=== PATIENT | male | born 1950 | race Caucasian/White ===

== ENCOUNTER 2020-02-21 10:03 | Inpatient (IN) | payer OTHER ==
[2020-02-21] MEDS ORDERED: HYDROCODONE/CHLORPHEN 5 ML/OSYR ONE (10:19)
[2020-02-21] MEDS ORDERED: ENOXAPARIN 100 MG/ML SYR SQ ONE (10:19)
[2020-02-21] MEDS ORDERED: METOPROLOL TARTRATE 5 MG/5 ML INJ IV ONE (10:19)
[2020-02-21 10:33] LABS: Absolute Lymphocytes (CBC) 0.7 K/uL (0.7-4.9); Basophils % 0.5 % (0-1.3); Lymphocytes % 13.2 % (15.3-44.8); MPV 8.8 fL (7.6-11.3); RBC Red Blood Cell Count 5.26 M/uL (4.33-5.43)
[2020-02-21 11:00] LABS: ALT/SGPT 35 U/L (12-78); AST/SGOT 23 U/L (15-37); Albumin 3.8 g/dL (3.4-5.0); Alkaline Phosphatase 118 U/L (45-117); BUN Blood Urea Nitrogen 15 mg/dL (7-18); Bicarbonate 28 mmol/L (21-32); Bilirubin Direct 0.2 mg/dL (0-0.2); Bilirubin Total 0.7 mg/dL (0.2-1.0); Creatine Phosphokinase 77 U/L (39-308); Glucose Level 97 mg/dL (74-106); Lipase 175 U/L (73-393); Potassium 3.9 mmol/L (3.5-5.1); Protein, Total 7.5 g/dL (6.4-8.2); Sodium Level 137 mmol/L (136-145); Troponin (Emerg Dept Use Only) < 0.02 ng/mL (0.0-0.045)
[2020-02-21 11:05] LABS: Protime INR 0.98
--- NOTE | 2020-02-21 11:31 | EDPHYS ---
Physician Documentation [facility] Name: Mehul Franco Age: 69 yrs Sex: Male : 1950 Arrival Date: 02/21/2020 Time: 10:04 Bed 6 Private MD: ED Physician Javy Archer HPI: 02/20 10:54 This 69 yrs old Male presents to ER via Unassigned with complaints of Breathing jr8 Difficulty - COVID pos. 10:54 The patient has shortness of breath at rest. Onset: The symptoms/episode began/occurred jr8 gradually, 5 day(s) ago, and became worse. Duration: The symptoms are continuous. The patient's shortness of breath is aggravated by light activity, walking. Associated signs and symptoms: Pertinent positives: non-productive cough, fever, Lost of taste . Severity of symptoms: At their worst the symptoms were moderate in the emergency department the symptoms are unchanged. The patient has not experienced similar symptoms in the past. The patient has not recently seen a physician. Patient tested positive for COVID-19 via [facility]. Got results yesterday from PCR nasal swab. Stated that he had mild symptoms that started this past Wednesday but now getting short of breath and having worsening of cough. Historical: - Allergies: 10:58 No Known Allergies; sv - Home Meds: 10:58 losartan oral oral [Active]; levothyroxine oral [Active]; sv - PMHx: 10:58 High Cholesterol; Thyroid problem; sv - PSHx: 10:58 Hernia repair; sv - Immunization history:: Adult Immunizations up to date. - Social history:: Smoking status: Patient denies any tobacco usage or history of. ROS: 10:54 Eyes: Negative for injury, pain, redness, and discharge, ENT: Negative for injury, jr8 pain, and discharge, Neck: Negative for injury, pain, and swelling, Cardiovascular: Negative for chest pain, palpitations, and edema, Abdomen/GI: Negative for abdominal pain, nausea, vomiting, diarrhea, and constipation, Back: Negative for injury and pain, MS/Extremity: Negative for injury and deformity, Skin: Negative for injury, rash, and discoloration, Neuro: Negative for headache, weakness, numbness, tingling, and seizure. 10:54 Constitutional: Positive for fever. 10:54 Respiratory: Positive for cough, dyspnea on exertion, shortness of breath. Exam: 10:54 Eyes: Pupils equal round and reactive to light, extra-ocular motions intact. Lids and jr8 lashes normal. Conjunctiva and sclera are non-icteric and not injected. Cornea within normal limits. Periorbital areas with no swelling, redness, or edema. ENT: Nares patent. No nasal discharge, no septal abnormalities noted. Tympanic membranes are normal and external auditory canals are clear. Oropharynx with no redness, swelling, or masses, exudates, or evidence of obstruction, uvula midline. Mucous membranes moist. Neck: Trachea midline, no thyromegaly or masses palpated, and no cervical lymphadenopathy. Supple, full range of motion without nuchal rigidity, or vertebral point tenderness. No Meningismus. Abdomen/GI: Soft, non-tender, with normal bowel sounds. No distension or tympany. No guarding or rebound. No evidence of tenderness throughout. Back: No spinal tenderness. No costovertebral tenderness. Full range of motion. Skin: Warm, dry with normal turgor. Normal color with no rashes, no lesions, and no evidence of cellulitis. MS/ Extremity: Pulses equal, no cyanosis. Neurovascular intact. Full, normal range of motion. Neuro: Awake and alert, GCS 15, oriented to person, place, time, and situation. Cranial nerves II-XII grossly intact. Motor strength 5/5 in all extremities. Sensory grossly intact. Cerebellar exam normal. Normal gait. 10:54 Cardiovascular: Rate: tachycardic, Rhythm: irregularly irregular, Pulses: Pulses are 2+ in right radial artery and left radial artery. Heart sounds: normal, normal S1and S2, no S3 or S4, no murmur, no rub, no gallop, Edema: is not appreciated, JVD: is not appreciated. 10:54 ECG was reviewed by the Attending Physician. 10:54 Respiratory: mild respiratory distress is noted, Respirations: tachypnea, Breath sounds: are clear throughout, no bronchial sounds, no decreased breath sounds, no rales, rhonchi, no stridor, no wheezing. Vital Signs: 09:48 BP 144 / 101; Pulse 138; Resp 20; Pulse Ox 98% ; sv 10:08 BP 144 / 101; Pulse 142; Resp 24; Temp 99.4; Pulse Ox 98% on R/A; Weight 108.41 kg; ph 10:39 BP 142 / 90; Pulse 115 MON; Resp 22; Pulse Ox 98% on R/A; sv 10:45 BP 116 / 81; Pulse 118 MON; Resp 17; Pulse Ox 95% on R/A; sv 11:58 BP 130 / 101; Pulse 111 MON; Resp 22; Pulse Ox 98% on R/A; sv 12:18 BP 133 / 99; Pulse 99; Resp 20; Pulse Ox 100% on R/A; mh5 12:45 BP 133 / 99; Pulse 103 MON; Resp 21; Pulse Ox 96% on R/A; sv 13:24 BP 122 / 99; Pulse 102; Resp 20; Pulse Ox 97% on R/A; sv 09:48 A fib sv 10:39 A fib sv 10:45 A fib sv 11:58 A fib sv 12:45 A fib sv MDM: 10:05 Patient medically screened. [facility] 11:29 Data reviewed: vital signs, nurses notes, lab test result(s), EKG, radiologic studies, [facility] plain films. Data interpreted: Pulse oximetry: on room air is 95 %. Interpretation: acceptable. Counseling: I had a detailed discussion with the patient and/or guardian regarding: the historical points, exam findings, and any diagnostic results supporting the discharge/admit diagnosis, lab results, radiology results, the need for further work-up and treatment in the hospital. 02/20 10:06 Order name: Ckmb; Complete Time: 11:02/20 10:06 Order name: Fibrinogen; Complete Time: 11:02/20 10:06 Order name: D-Dimer; Complete Time: 11:02/20 10:06 Order name: C-Reactive Protein; Complete Time: 11:02/20 10:06 Order name: Basic Metabolic Panel; Complete Time: 11:02/20 10:06 Order name: Blood Culture Adult (2) 02/20 10:06 Order name: CBC with Diff; Complete Time: 10:53 02/20 10:06 Order name: CPK; Complete Time: 11:02/20 10:06 Order name: Lactate; Complete Time: 11:02/20 10:06 Order name: LFT's; Complete Time: 11:13 [facility] 02/20 10:06 Order name: Lipase; Complete Time: 11:13 [facility] 02/20 10:06 Order name: Procalcitonin; Complete Time: 11:24 [facility] 02/20 10:06 Order name: Protime (+inr); Complete Time: 11:13 [facility] 02/20 10:06 Order name: Ptt, Activated; Complete Time: 11:13 [facility] 02/20 10:06 Order name: Troponin (emerg Dept Use Only); Complete Time: 11:13 [facility] 02/20 10:06 Order name: Urine Microscopic Only [facility] 02/20 10:06 Order name: Chest Single View XRAY; Complete Time: 11:51 [facility] 02/20 10:07 Order name: Ferritin; Complete Time: 11:13 [facility] 02/20 12:58 Order name: Comprehensive Metabolic Panel EDWA 02/20 12:58 Order name: Comprehensive Metabolic Panel [facility] 02/20 13:00 Order name: CBC with Automated Diff EDWA 02/20 13:00 Order name: CBC with Automated Diff EDMS 02/20 13:01 Order name: Troponin I EDWA 02/20 13:01 Order name: Troponin I [facility]WA 02/20 13:01 Order name: Sputum Gram Stain EDWA 02/20 13:02 Order name: Echo with Doppler [facility]WA 02/20 13:02 Order name: Thyroid Stimulating Hormone; Complete Time: 13:34 [facility] 02/20 13:14 Order name: Urine Dipstick--Ancillary (enter results); Complete Time: 13:20 02/20 10:06 Order name: Cardiac monitoring; Complete Time: 10:55 [facility] 02/20 10:06 Order name: EKG - Nurse/Tech; Complete Time: 10:56 [facility] 02/20 10:06 Order name: IV Saline Lock - Large Bore; Complete Time: 10:56 [facility] 02/20 10:06 Order name: Labs collected and sent; Complete Time: 10:56 [facility] 02/20 10:06 Order name: O2 Per Protocol; Complete Time: 10:56 [facility] 02/20 10:06 Order name: O2 Sat Monitoring; Complete Time: 10:56 [facility] 02/20 10:06 Order name: Urine Dipstick-Ancillary (obtain specimen); Complete Time: 13:24 [facility] 02/20 12:58 Order name: CONS Pharmacy Consult EDWA 02/20 12:58 Order name: CONS Physician Consult EDWA 02/20 13:00 Order name: Heart Healthy EDWA 02/20 13:02 Order name: CONS Physician Consult EDWA EC:54 Rate is 137 beats/min. Rhythm is irregularly irregular, A fib. QRS [place] is Normal. QRS jr8 interval is normal at 88 msec. QT interval is normal. No Q waves. T waves are Inverted in leads II, V4, V5, V6. No ST changes noted. Clinical impression: Atrial Fibrillation. Interpreted by me. Reviewed by me. Administered Medications: 10:07 Not Given (Physician Discretion): NS 0.9% (30 ml/kg) 30 ml/kg IV at bolus once; Sepsis jr8 Protocol 10:29 Drug: Lovenox 1 mg/kg Route: Sub-Q; Site: right lower abdomen; sv 11:23 Follow up: Response: No adverse reaction sv 10:29 Drug: Tussionex Pennkinetic ER 5 ml Route: PO; sv 11:23 Follow up: Response: No adverse reaction sv 10:29 Drug: Metoprolol 5 mg Route: IVP; Site: left antecubital; sv 10:41 Drug: Metoprolol 5 mg Route: IVP; Site: left antecubital; sv 11:00 Follow up: Response: No adverse reaction; Blood pressure is lowered sv Disposition: 02/21/20 11:30 Hospitalization ordered by Le Galvin for Inpatient Admission. Preliminary diagnosis are COVID-19, Atrial fibrillation and flutter - With RVR new onset, Shortness of breath. - Bed requested for Telemetry/MedSurg (Inpatient). - Status is Inpatient Admission. sv - Condition is Fair. - Problem is new. - Symptoms have improved. Addendum: 02/22/2020 18:39 Co-signature as Attending Physician, Javy Archer MD I agree with the assessment and c arnold plan of care. Signatures: Dispatcher [employer] EDWA Lela Floyd RN RN kl Verde, Stephanie, RN RN sv Anderson, Corey, MD MD cha Roszak, Josh, PA PA jr8 Corrections: (The following items were deleted from the chart) 02/20 10:55 10:06 Accucheck ordered. jr8 sv 12:02 11:52 CORONAVIRUS+MR.LAB.BRZ ordered. EDMS EDMS 13:03 11:30 Hospitalization Ordered by Le Galvin MD for Inpatient Admission. Preliminary kl diagnosis is COVID-19; Atrial fibrillation and flutter - With RVR new onset; Shortness of breath. Bed requested for Telemetry/MedSurg (Inpatient). Status is Inpatient Admission. Condition is Fair. Problem is new. Symptoms have improved. jr8 13:53 13:03 02/21/2020 11:30 Hospitalization Ordered by Le Galvin MD for Inpatient sv Admission. Preliminary diagnosis is COVID-19; Atrial fibrillation and flutter - With RVR new onset; Shortness of breath. Bed requested for Telemetry/MedSurg (Inpatient). Status is Inpatient Admission. Condition is Fair. Problem is new. Symptoms have improved. kl
--- NOTE | 2020-02-21 11:31 | ER ---
Nurse's Notes [facility] Name: Mehul Franco Age: 69 yrs Sex: Male : 1950 Arrival Date: 02/21/2020 Time: 10:04 Bed 6 Private MD: Diagnosis: COVID-19;Atrial fibrillation and flutter-With RVR new onset;Shortness of breath Presentation: 02/20 10:58 Chief complaint: Patient states: cough, fever, loss of taste, SOB x 5 days, COVID + sv result was given yesterday. Coronavirus screen: Surgical mask placed on patient. Patient moved to private room, placed in contact and droplet isolation with eye protection until further assessment. Patient reports a cough. Patient reports shortness of breath or difficulty breathing. Patient reports a measured and/or subjective temperature greater than 100.4F. Patient denies travel on a cruise ship or to a country the [facility] currently lists as an affected area. Patient denies contact with known and/or suspected case of COVID-19. Prior COVID test are currently unavailable. Ebola Screen: No symptoms or risks identified at this time. Initial Sepsis Screen: Does the patient meet any 2 criteria? HR > 90 bpm. No. Patient's initial sepsis screen is negative. Does the patient have a suspected source of infection? No. Patient's initial sepsis screen is negative. Risk Assessment: Do you want to hurt yourself or someone else? Patient reports no desire to harm self or others. Onset of symptoms was February 16, 2020. 10:58 Method Of Arrival: Wheelchair sv 10:58 Acuity: DAFNE 2 sv Triage Assessment: 10:05 General: Appears in no apparent distress. uncomfortable, well groomed, well developed, sv Behavior is calm, cooperative, appropriate for age. Pain: Denies pain. Neuro: Level of Consciousness is awake, alert, obeys commands, Oriented to person, place, time, situation, Moves all extremities. Full function Gait is steady, Speech is normal. Cardiovascular: Patient's skin is warm and dry. Pulses are 3+ in right brachial artery and left brachial artery Rhythm is atrial fibrillation with rapid ventricular response. Respiratory: Reports shortness of breath at rest on exertion cough that is non-productive, persistent Airway is patent Respiratory effort is even, unlabored, Respiratory pattern is regular, tachypnea Onset: The symptoms/episode began/occurred 5 days ago, the patient has moderate shortness of breath. Derm: Skin is intact, Skin is pink, warm \T\ dry. Musculoskeletal: Circulation, motion, and sensation intact. Range of motion: intact in all extremities. Historical: - Allergies: 10:58 No Known Allergies; sv - Home Meds: 10:58 losartan oral oral [Active]; levothyroxine oral [Active]; sv - PMHx: 10:58 High Cholesterol; Thyroid problem; sv - PSHx: 10:58 Hernia repair; sv - Immunization history:: Adult Immunizations up to date. - Social history:: Smoking status: Patient denies any tobacco usage or history of. Screenin:02 Abuse screen: Denies threats or abuse. Denies injuries from another. Nutritional sv screening: No deficits noted. Tuberculosis screening: No symptoms or risk factors identified. Fall Risk None identified. Assessment: 10:41 Reassessment: Patient appears in no apparent distress at this time. Patient and/or sv family updated on plan of care and expected duration. Pain level reassessed. Patient is alert, oriented x 3, equal unlabored respirations, skin warm/dry/pink. 12:09 Reassessment: Patient appears in no apparent distress at this time. Patient and/or sv family updated on plan of care and expected duration. Pain level reassessed. Patient is alert, oriented x 3, equal unlabored respirations, skin warm/dry/pink. 12:45 Reassessment: Called Dr Galvin to get admission orders, stated he would get them in sv the computer. 13:14 Reassessment: Patient appears in no apparent distress at this time. Patient and/or sv family updated on plan of care and expected duration. Pain level reassessed. Patient is alert, oriented x 3, equal unlabored respirations, skin warm/dry/pink. Pt given 2 cups of water. 13:27 Reassessment: Dr Galvin at the bedside. sv Vital Signs: 09:48 BP 144 / 101; Pulse 138; Resp 20; Pulse Ox 98% ; sv 10:08 BP 144 / 101; Pulse 142; Resp 24; Temp 99.4; Pulse Ox 98% on R/A; Weight 108.41 kg; ph 10:39 BP 142 / 90; Pulse 115 MON; Resp 22; Pulse Ox 98% on R/A; sv 10:45 BP 116 / 81; Pulse 118 MON; Resp 17; Pulse Ox 95% on R/A; sv 11:58 BP 130 / 101; Pulse 111 MON; Resp 22; Pulse Ox 98% on R/A; sv 12:18 BP 133 / 99; Pulse 99; Resp 20; Pulse Ox 100% on R/A; mh5 12:45 BP 133 / 99; Pulse 103 MON; Resp 21; Pulse Ox 96% on R/A; sv 13:24 BP 122 / 99; Pulse 102; Resp 20; Pulse Ox 97% on R/A; sv 09:48 A fib sv 10:39 A fib sv 10:45 A fib sv 11:58 A fib sv 12:45 A fib sv ED Course: 10:00 Patient has correct armband on for positive identification. Placed in gown. Bed in low sv position. Call light in reach. monitoring analyst on. Pulse ox on. NIBP on. Door closed. Head of bed elevated. 10:04 Patient arrived in ED. dm5 10:05 Moisés Saldana PA is PHCP. jr8 10:05 Javy Archer MD is Attending Physician. jr8 10:05 Arm band placed on. sv 10:05 First set of blood cultures drawn by me. Inserted saline lock: 20 gauge in left sv antecubital area, using aseptic technique. Blood collected. Flushed left antecubital with 5 ml normal saline. 10:15 Second set of blood cultures drawn by me. sv 10:54 Miranda Tony, ROGERIO is Primary Nurse. sv 11:02 Triage completed. sv 11:23 Chest Single View XRAY Sent. sv 11:24 Awaiting radiology results. sv 11:30 Le Galvin MD is Hospitalizing Provider. jr8 11:40 Chest Single View XRAY In Process Unspecified. EDMS 12:10 Awaiting bed assignment. sv 13:13 No provider procedures requiring assistance completed. Patient admitted, IV remains in sv place. intact. 13:52 daughter elif [phone]. sonjohnie [phone]. bd Administered Medications: 10:07 Not Given (Physician Discretion): NS 0.9% (30 ml/kg) 30 ml/kg IV at bolus once; Sepsis jr8 Protocol 10:29 Drug: Lovenox 1 mg/kg Route: Sub-Q; Site: right lower abdomen; sv 11:23 Follow up: Response: No adverse reaction sv 10:29 Drug: Tussionex Pennkinetic ER 5 ml Route: PO; sv 11:23 Follow up: Response: No adverse reaction sv 10:29 Drug: Metoprolol 5 mg Route: IVP; Site: left antecubital; sv 10:41 Drug: Metoprolol 5 mg Route: IVP; Site: left antecubital; sv 11:00 Follow up: Response: No adverse reaction; Blood pressure is lowered sv Outcome: 11:30 Decision to Hospitalize by Provider. jr8 13:13 Admitted to Tele accompanied by tech, via wheelchair, room 418, with chart, Report sv called to Ashlee BEATTY 13:13 Condition: stable 13:13 Instructed on the need for admit. 13:53 Patient left the ED. sv Signatures: Dispatcher [employer] EDMS Jodee Quinn Deana RN RN dm5 Miranda Tony RN RN sv Moisés Saldana, PA PA jr8 Lina Dalal, ROGERIO RN ph [place] [phone] Corrections: (The following items were deleted from the chart) 10:16 10:08 BP 144 / 101; Pulse 142bpm; Resp 24bpm; Pulse Ox 98% RA; 108.41 kg; ph ph
--- NOTE | 2020-02-21 11:48 | RAD REPORT ---
EXAM DESCRIPTION: RAD - Chest Single View - 02/21/2020 11:39 am CLINICAL HISTORY: COVID 19;Dyspnea COMPARISON: None TECHNIQUE: AP portable chest image was obtained 02/21/2020 11:39 am . FINDINGS: No mass or consolidation identifiable. No focal infiltrative process seen. No failure or v olume overload. Heart and vasculature are normal. No measurable pleural effusion and no pneumothorax. No acute bony abnormality seen. No acute aortic findings suspected. IMPRESSION: No acute cardiopulmonary process. Mildly prominent interstitial pattern is believed be baseline. Patient has no radiographic finding that would substantially elevate concern for COVID-19 infection.
[2020-02-21] MEDS ORDERED: MORPHINE 2 MG/ML SYR IV PRN (12:52)
[2020-02-21] MEDS ORDERED: ALBUTEROL 2.5 MG/3 ML NEB SOL NEB PRN ×2 (12:52→16:00)
--- NOTE | 2020-02-21 13:00 | P.HP ---
Certification for Inpatient Patient admitted to: Observation With expected LOS: >2 Midnights Patient will require the following post-hospital care: None Practitioner: I am a practitioner with admitting privileges, knowledge of patient current condition, hospital course, and medical plan of care. Services: Services provided to patient in accordance with Admission requirements found in Title 42 Section 412.3 of the Code of Federal Regulations Patient History Date of Service: 02/21/20 Reason for admission: Shortness of breath, cough History of Present Illness: Patient with past medical history of hypertension, thyroid disorder s/p thyroidectomy on supplemental thyroid medication admitted for worsening cough and shortness of breath. Patient states he had the recent travel to [place] [address] had dinner at a restaurant with a group of friends. Since then he has been feeling weak and tired with new onset cough since the last 3 days. He went to [facility] for Covid testing 2 days ago and received result s yesterday and was positive. He admits to fever and chills at home. He presented today because of shortness of breath. In the ER he was noted with AFib with RVR with rate up to 140s. His rate has improved to 110 with metoprolol. Patient denies any nausea vomiting now. He denies any history of atrial fibrillation in the past. Allergies No Known Allergies Allergy (Verified 02/21/20 12:08) Home medications list reviewed: Yes - Past Medical/Surgical History Has patient received pneumonia vaccine in the past: No -: Hypertension -: Hyperlipidemia -: Thyroid is -: Hernia repair, partial thyroidectomy - Family History Family History: Reviewed- Non-Contributory - Social History Smoking Status: Never smoker Counseled patient to stop smoking for: less than 10 minutes Smoking therapy provided: No Patient receptive to therapy: No Alcohol use: Yes CD- Drugs: No Place of Residence: Home Review of Systems 10-point ROS is otherwise unremarkable Physical Examination - Physical Exam General: Alert, In no apparent distress, Oriented x3 HEENT: Atraumatic, Normocephalic, PERRLA, Mucous membr. moist/pink Neck: Supple, 2+ carotid pulse no bruit, JVD not distended Respiratory: Clear to auscultation bilaterally, Normal air movement Cardiovascular: No edema, Normal S1 S2, Irregular heart rate/rhythm Gastrointestinal: Normal bowel sounds, Soft and benign, Non-distended, No ascites Musculoskeletal: No clubbing, No swelling Integumentary: No rashes, No breakdown Neurological: Normal speech, Normal strength at 5/5 x4 extr - Studies Laboratory Data (last 24 hrs) 02/21/20 10:05: WBC 5.0, Hgb 16.3, Hct 49.0, Plt Count 223 02/21/20 10:05: PT 11.6, INR 0.98, APTT 30.9 02/21/20 10:05: Sodium 137, Potassium 3.9, BUN 15, Creatinine 1.22, Glucose 97, Total Bilirubin 0.7, AST 23, ALT 35, Alkaline Phosphatase 118 H, Lipase 175 Imagings Data: EXAM DESCRIPTION: RAD - Chest Single View - 02/21/2020 11:39 am CLINICAL HISTORY: COVID 19;Dyspnea COMPARISON: None TECHNIQUE: AP portable chest image was obtained 02/21/2020 11:39 am . FINDINGS: No mass or consolidation identifiable. No focal infiltrative process seen. No failure or volume overload. Heart and vasculature are normal. No measurable pleural effusion and no pneumothorax. No acute bony abnormality seen. No acute aortic findings suspected. IMPRESSION: No acute cardiopulmonary process. Mildly prominent interstitial pattern is believed be baseline. Patient has no radiographic finding that would substantially elevate concern for COVID-19 infection. Assessment and Plan - Advance Directives Does patient have a Living Will: No Does patient have a Durable POA for Healthcare: No Physician Review: Patient Assessed, Agree with Above Assessment and Plan Physician Review Additional Text: New onset AFib-with RVR -we start metoprolol low dose increase as tolerated. 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 -we start empirical Zithromax, guaifenesin, steroids as needed -follow daily CRP -if worsening symptoms will consider trial of Remdesivir -keep in isolation precaution room and #Thyroid disorder-status post partial parotidectomy for goiter in the past Hold Synthroid # hypertension-previously on losartan Given covid , will hold losartan -start low-dose metoprolol next NS in DVT prophylaxis-on Eliquis Advanced directive-full Code Disposition possible hospital stay for 24-48 hr Time Spent Managing Pts Care (In Minutes): 65
[2020-02-21 13:18] LABS: Urine Blood NEGATIVE (NEG); Urine Glucose NEGATIVE (NEG); Urine Protein NEGATIVE (NEG); Urine Specific Gravity 1.025 (1.005-1.030)
[2020-02-21] MEDS: predniSONE 20 MG TAB PO SCH ×2 (13:46→21:23)
[2020-02-21] MEDS: AZITHROMYCIN 250 MG TAB PO SCH (13:46)
[2020-02-21 13:55] LABS: Urine Bacteria <20 /HPF (NONE SEEN); Urine Culture Reflex Order NOT NEEDED; Urine RBC <5 /HPF (NONE SEEN)
[2020-02-21] MEDS ORDERED: IPRATROPIUM BROM 0.5MG/2.5ML NEB SCH (14:00)
[2020-02-21] MEDS ORDERED: METOPROLOL TAR 50 MG TAB PO SCH ×2 (14:11→21:00)
[2020-02-21] MEDS: APIXABAN 5 MG TABLET PO SCH (15:43)
[2020-02-21 15:47] LABS: T3 Free 2.16 pg/mL (2.18-3.98); T4,Total 10.4 ug/dL (4.5-12.1)
[2020-02-21] MEDS: ACETAMINOPHEN 325 MG TABLET PO PRN (17:01)
[2020-02-21] MEDS ORDERED: METOPROLOL TARTRATE 5 MG/5 ML INJ IV STA (17:38)
[2020-02-21] MEDS ORDERED: NA CHLORIDE 0.9% 250 ML IV PRN ×3 (19:23→20:00)
[2020-02-21] MEDS ORDERED: NA CHLORIDE 0.9% 250 ML IV ONE ×3 (19:30→20:45)
[2020-02-21] MEDS ORDERED: NA CHLORIDE 0.9% 250 ML ONE ×2 (19:31→20:05)
[2020-02-21] MEDS ORDERED: HYDROXYCHLOROQUINE 200MG TAB PO SCH (21:00)
[2020-02-21] MEDS ORDERED: APIXABAN 5 MG TABLET PO SCH (21:00)
[2020-02-21] MEDS: GUAIFENESIN 600 MG SA TAB PO SCH (21:22)
[2020-02-21] MEDS: FAMOTIDINE 20 MG TAB PO SCH (21:22)
[2020-02-21] MEDS ORDERED: ALBUMIN HUM 5% 500 ML IV ONE (22:00)
[2020-02-22] MEDS ORDERED: NA CHLORIDE 0.9% 100 ML ONE (03:13)
[2020-02-22] MEDS ORDERED: dilTIAZem HCL 25 MG/5 ML VIAL IV ONE (03:13)
[2020-02-22] MEDS ORDERED: DILTIAZEM INJ 125 MG in NA CHLORIDE 0.9% 100 ML IVPB PRN (03:55)
[2020-02-22 05:24] LABS: Absolute Lymphocytes (CBC) 0.8 K/uL (0.7-4.9); Basophils % 0.2 % (0-1.3); Hematocrit 45.6 % (39.6-49.0); Lymphocytes % 15.8 % (15.3-44.8); MPV 8.2 fL (7.6-11.3); RBC Red Blood Cell Count 4.83 M/uL (4.33-5.43)
[2020-02-22 06:23] LABS: Albumin 3.3 g/dL (3.4-5.0); Bilirubin Total 0.4 mg/dL (0.2-1.0); C-Reactive Protein 36.2 mg/L (<3.00); Potassium 4.3 mmol/L (3.5-5.1); Protein, Total 6.8 g/dL (6.4-8.2); Troponin I 0.02 ng/mL (0.0-0.045)
--- NOTE | 2020-02-22 07:15 | EKG ---
Test Date: 2020-02-22 Test Time: 00:14:58 Slitter Scorer Cut Off Operator: RT MEASUREMENT RESULTS: Intervals: Rate: 148 UT: 94 QRSD: 112 QT: 328 QTc: 514 [place]: P: 70 UT: 94 QRS: -14 T: 259 INTERPRETIVE STATEMENTS: Sinus tachycardia with short UT ST & T wave abnormality, consider inferolateral ischemia Abnormal ECG Compared to ECG 02/21/2020 10:24:13 Short UT interval now present Possible ischemia now present Atrial fibrillation no longer present ST (T wave) deviation still present Electronically Signed On 02-22-20 07:15:07 CDT by Lazaro Cuevas
[2020-02-22] MEDS: APIXABAN 5 MG TABLET PO SCH ×2 (08:08→19:09)
[2020-02-22] MEDS: GUAIFENESIN 600 MG SA TAB PO SCH ×2 (08:08→19:08)
[2020-02-22] MEDS: FAMOTIDINE 20 MG TAB PO SCH ×2 (08:08→19:08)
[2020-02-22] MEDS: predniSONE 20 MG TAB PO SCH (08:08)
[2020-02-22] MEDS: AZITHROMYCIN 250 MG TAB PO SCH (08:08)
[2020-02-22] MEDS ORDERED: AMIODARONE HCL 150 MG in D5W 100 ML IV STA (10:14)
[2020-02-22] MEDS ORDERED: AMIODARONE HCL 450 MG in D5W 241 ML IV SCH (11:00)
--- NOTE | 2020-02-22 12:46 | P.CNS ---
Date of Consult: 02/22/20 Chief Complaint: Shortness of breath, cough History of Present Illness: Patient is 69 years of age admitted to the hospital for shortness of breath zee virus positive is transfer to the ICU due to uncontrolled AFib is currently off oxygen multiple medical problems is has some history of cough and shortness of breath recent travel history of the fever and chills at home admitted for shortness of breath rapid heart rate currently on a Cardizem drip is chest x-rays clear Allergies No Known Allergies Allergy (Verified 02/21/20 12:08) Home Medications: Levothyroxine [Synthroid*] 0.125 mg PO DAILY 02/21/20 Losartan Potassium [Cozaar] 100 mg PO DAILY 02/21/20 - Past Medical/Surgical History Diabetic: No -: Hypertension -: Hypothyroidism -: Bronchitis/Pneumonia -: Sleep Apnea -: Hernia Repair -: Thumb Surgery -: Partial Thyroidectomy - Social History Alcohol use: Yes CD- Drugs: No Place of Residence: Home Review of Systems is unable to be obtained Physical Examination Temp Pulse Resp BP Pulse Ox 97.8 F 64 20 111/65 98 02/22/20 11:00 02/22/20 11:00 02/22/20 11:00 02/22/20 11:00 02/22/20 11:00 General: Other (Deferred patient is isolated) Laboratory Data (last 24 hrs) 02/22/20 05:03: Sodium 140, Potassium 4.3, BUN 16, Creatinine 0.85, Glucose 123 H, Total Bilirubin 0.4, AST 24, ALT 35, Alkaline Phosphatase 98, Troponin I 0.02 02/22/20 05:03: WBC 4.9, Hgb 15.4, Hct 45.6, Plt Count 168 D 02/21/20 10:05: Magnesium 2.6 H - Problems (1) Lab test positive for detection of COVID-19 virus Current Visit: Yes Status: Acute Plan: Patient is 69 years of age with a history of colon a wire as positive test admitted with shortness of breath he was found to have be in rapid AFib is currently on a Cardizem drip doing well there is no evidence of any ARDS oxygenation satisfactory chest x-ray clear labs reviewed Dc prednisone and Zithromax vital signs are stable patient i mild fever since admission
--- NOTE | 2020-02-22 15:45 | P.PN ---
Subjective Date of Service: 02/22/20 Chief Complaint: Shortness of breath, cough Subjective: No new changes, No C/O voiced Physical Examination - Vital Signs Temperature: 97.8 F Blood Pressure: 111/65 Pulse: 64 Respirations: 20 Pulse Ox (%): 98 - Physical Exam General: Alert, In no apparent distress HEENT: Atraumatic, Normocephalic Neck: Supple, 2+ carotid pulse no bruit Gastrointestinal: Normal bowel sounds, Soft and benign, Non-distended Integumentary: No rashes Neurological: Normal gait, Normal strength at 5/5 x4 extr, Normal tone - Studies Laboratory Data (last 24 hrs) 02/22/20 05:03: Sodium 140, Potassium 4.3, BUN 16, Creatinine 0.85, Glucose 123 H, Total Bilirubin 0.4, AST 24, ALT 35, Alkaline Phosphatase 98, Troponin I 0.02 02/22/20 05:03: WBC 4.9, Hgb 15.4, Hct 45.6, Plt Count 168 D Assessment And Plan Physician Review: Patient Assessed, Agree with Above Assessment and Plan Physician Review Additional Text: New onset AFib-with RVR- improving - now in SR -s/p failed cardizem and toprol use -s/p now in ICU and on amidoarone gtt now -follow cardiology -low TSH but also low T3 AND t4 WNL -c/w home dose of synthroid -c/w Eliquis --follow echocardiogram CoVid pneumonia-with mild symptoms-improved oxygenation -s/p steroids and zithromax held now -c/w to keep in isolation precaution room #Thyroid disorder-status post partial parotidectomy for goiter in the past resume Synthroid # hypertension- controlled # DVT prophylaxis-on Eliquis Advanced directive-full Code Disposition possible hospital stay for next 24- hr
[2020-02-22] MEDS: ACETAMINOPHEN 325 MG TABLET PO PRN (19:08)
--- NOTE | 2020-02-22 20:05 | CON ---
Date of Consultation: 02/22/2020 Reason For Consultation: Atrial fibrillation with rapid ventricular response. History Of Present Illness: A 69-year-old male who presented to the emergency room due to shortness of breath. He has history of hypertension, hypothyroidism, claimed that for about 1 week prior to th e admission, was having some shortness of breath. He went to [facility] and he was tested positive for COV ID-19 and received the results yesterday, so presented to the emergency room. Admits to having some fever and chills along with mild cough and shortness of breath. Upon evaluation, initially he was in rapid atrial fibrillation, heart rate in the 140-150 range. He was given IV Cardizem and his heart rate is better, but blood pressure is on lower side. The patient is not known to have any history of cardiac disease. Past Medical History: Hypertension, hypothyroidism. Current Medications: Refer to reconciliation sheet for detailed list. Allergies: NO KNOWN DRUG ALLERGIES. Social History: Does not smoke or drink. Does not use any drugs. Family History: No premature coronary artery disease or cancer. Review of Systems: All systems reviewed are negative except as mentioned in HPI. Physical Examination: Vital Signs: Temperature is 97.8, pulse 64, breathing at 18, blood pressure is 114/67, saturating 98 % on room air. General: Pleasant middle-aged male, in no apparent distress. Head and Neck: Pupils are equal, react to light. Intact eye movements. No JVD. No cervical lympha denopathy. Neck: Supple. Thyroid is not enlarged. Lungs: Clear to auscultation bilaterally. No rhonchi, rales, or crackles. No accessory muscle use. Heart: Irregularly irregular. No extra sounds. Abdomen: Soft, nontender. Bowel sounds positive. No organomegaly. No masses or hernia. No rigidi ty or rebound. Extremities: No edema, clubbing, cyanosis. Intact pulses. Skin: No rashes. Neurologic: Alert, awake, and oriented x3. No acute focal deficits appreciated. Lymph Nodes: No cervical adenopathy. Investigations: Creatinine is 0.85. TSH is 0.29. Assessment And Plan: 1.Atrial fibrillation with rapid ventricular response. The patient is on Eliquis. Agree with that and recommend to start amiodarone drip, we will load with 150 mg for over 10 minutes and then 1 mg/mi nute. 2.Obtain echocardiogram to evaluate the heart structure. 3.Continue Eliquis. If the patient does not get rate control or convert on amiodarone, we will plan to switch it to oral after 24 hours load and continue anticoagulation and electrical cardioversion a t a later time if he does not convert into sinus rhythm. 4.Start weaning off the diltiazem drip. Recommendation: 1.To decrease the dose of the thyroid replacement therapy that he is getting as his TSH is on the lo w side. 2.Hypothyroidism, on thyroid replacement therapy. Recommend to decrease the dose of the thyroid rep lacement therapy due to the atrial fibrillation episode. I appreciate the opportunity letting me consult a new patient. SR/MODL Voice ID: [id number] Report ID: [id number]
[2020-02-23] MEDS: ACETAMINOPHEN 325 MG TABLET PO PRN ×3 (05:36→20:13)
[2020-02-23] MEDS: APIXABAN 5 MG TABLET PO SCH ×2 (08:18→20:05)
[2020-02-23] MEDS: GUAIFENESIN 600 MG SA TAB PO SCH ×2 (08:18→20:05)
[2020-02-23] MEDS: FAMOTIDINE 20 MG TAB PO SCH ×2 (08:19→20:07)
[2020-02-23] MEDS ORDERED: AMIODARONE HCL 200 MG TAB PO SCH ×2 (12:00→21:00)
--- NOTE | 2020-02-23 13:08 | ECHO ---
HEIGHT: 6 ft 3 in WEIGHT: 246 lb 8 oz DATE OF STUDY: 02/22/[address]: Le Galvin MD 2-DIMENSIONAL: YES M.MODE: YES DOPPLER: YES COLOR FLOW: YES TDS: NO PORTABLE: YES DEFINITY: NO BUBBLE STUDY: NO DIAGNOSIS: ATRIAL FIBRILLATION CARDIAC HISTORY: CATHERIZATION: NO SURGERY: NO PROSTHETIC VALVE: NO PACEMAKER: NO MEASUREMENTS (cm) DIASTOLIC (NORMALS) SYSTOLIC (NORMALS) IVSd 0.9 (0.6-1.2) LA Diam (1.9-4.0) LVEF 57% LVIDd 5.2 (3.5-5.7) LVIDs 3.6 (2.0-3.5) %FS 30% LVPWd 1.0 (0.6-1.2) Ao Diam 3.2 (2.0-3.7) 2 DIMENSIONAL ASSESSMENT: RIGHT ATRIUM: NORMAL LEFT ATRIUM: NORMAL RIGHT VENTRICLE: NORMAL LEFT VENTRICLE: NORMAL TRICUSPID VALVE: NORMAL MITRAL VALVE: NORMAL PULMONIC VALVE: NORMAL AORTIC VALVE: NORMAL PERICARDIAL EFFUSION: NONE AORTIC ROOT: NORMAL LEFT VENTRICULAR WALL MOTION: NORMAL. DOPPLER/COLOR FLOW: NORMAL. COMMENTS: NORMAL LEFT VENTRICULAR EJECTION FRACTION 55-60% WITH NORMAL METCALF. ATRIAL FIBRILLATION. TECHNOLOGIST: ONELIA CORONEL
[2020-02-23] MEDS: GUAIFENESIN/CODEINE 5ML UCUP PO PRN (13:18)
[2020-02-23] MEDS: HYDRALAZINE HCL 20 MG/ML VIAL IV PRN ×2 (13:18→18:57)
--- NOTE | 2020-02-23 17:22 | PN ---
Date of Progress Note: 02/23/2020 Subjective: Due to Covid 19 pandemic and regulations from [facility] and [facility] also to conserve PPD and reduce the risk of spread of the virus patient was seen through the ICU room for a virtual visit. Patient understands risks and benefits of virtual visit. All efforts have been made to this visit as close to regular visit as possible. Patient is agreeable to virtual visit. There were no technical difficulties experienced during the visit. Code status full. Case was discussed with Dr. Diez, Cardiology. Patient is now on amiodarone drip, is now back into sinus rhythm. Denies any chest pain. Does have some cough. No significant shortness of breath. Medications: List reviewed. Physical Examination: Vital Signs: Temperature 96.7, heart rate 64, blood pressure 154/79, respirations 20, O2 of 95% on room air. General: Awake, alert, does not appear to be in any acute distress. Elderly male, obese. Respiratory: Does not appear to be in any respiratory distress. No use of accessory muscles. Able to talk without shortness of breath. Extremities: No visual edema. Neuro: Patient's speech is normal. Moves all 4 extremities. Psych: Mood is okay. Affect is full. Insight and judgment are good. Laboratory Data: Labs pending. Blood cultures no growth to date. Echocardiogram per verbal report from dye range tender's is normal with normal EF. Assessment: 1. New-onset atrial fibrillation with rapid ventricular rate, improving, now in sinus rhythm. We will take off amiodarone drip and switch to p.o. amiodarone. Failed with Cardizem and Toprol. Patient is on Eliquis. Patient does have low TSH with low T3 and T4. Echocardiogram shows normal EF. 2. Coronavirus disease pneumonia with mild symptoms. Patient is 100% on room air. Appreciate Dr. Hanson's input. Steroids and Zithromax discontinued by Pulmonology. Continue isolation. 3. Hypothyroidism, status post partial parotidectomy for goiter in the past. We will continue Synthroid. 4. Essential hypertension, stable. 5. Deep vein thrombosis prophylaxis. Patient is on Eliquis. Plan: Likely discharge in a.m. if continues to remain stable. Patient is in day 7 of his covid infection. SA/MODL Voice ID: [id number] Report ID: [id number] MTDD
[2020-02-24] MEDS: GUAIFENESIN/CODEINE 5ML UCUP PO PRN ×3 (01:22→19:48)
[2020-02-24] MEDS ORDERED: AMIODARONE HCL 150 MG/3 ML INJ IV ONE (01:43)
[2020-02-24] MEDS ORDERED: D5W 100 ML IV ONE (01:43)
[2020-02-24] MEDS ORDERED: AMIODARONE IN DEXTROSE,ISO-OSM 360 MG/200 ML BAG IV ONE (01:43)
[2020-02-24] MEDS ORDERED: AMIODARONE HCL 150 MG in D5W 100 ML IV STA (02:05)
[2020-02-24] MEDS: ACETAMINOPHEN 325 MG TABLET PO PRN ×3 (02:08→17:06)
[2020-02-24] MEDS ORDERED: AMIODARONE HCL 900 MG in Dextrose 5%-Water 482 ML IV SCH ×2 (03:00→13:50)
[2020-02-24] MEDS: APIXABAN 5 MG TABLET PO SCH ×2 (08:00→19:44)
[2020-02-24] MEDS: LOSARTAN POTASSIUM 50 MG TABLET PO SCH (08:00)
[2020-02-24] MEDS: FAMOTIDINE 20 MG TAB PO SCH ×2 (08:31→19:44)
[2020-02-24] MEDS: GUAIFENESIN 600 MG SA TAB PO SCH ×2 (08:31→19:44)
--- NOTE | 2020-02-24 10:14 | PN ---
Date of Progress Note: 02/24/2020 Patient was seen virtually due to COVID pandemic, reduce risk of transmission and for PPE conservation. Patient was transferred back to the ICU yesterday for AFib with RVR. He is now placed back on amiodarone drip. Rate is in the 90s to 110s. Medications: List reviewed. Physical Examination: Vital Signs: Temperature 98.5, heart rate 98, blood pressure 129/79, respirations 18, O2 95% on room air. General: Awake, alert, oriented x3. Obese male. Does not appear to be in any acute distress. Respiratory: The patient does not appear to be using any accessory muscles. He is able to talk without any shortness of breath. Does not have any supplemental oxygen. Neuro: Moving all 4 extremities. Speech is normal. No facial asymmetry. Skin: No visible rashes. Laboratory Data: Pending blood cultures. No growth to date. Assessment: 69-year-old male with: 1. New-onset atrial fibrillation with rapid ventricular response, now back on amiodarone drip. Will need to switch back to oral, perhaps on a higher dose, was on 200 daily yesterday. Continue Eliquis. Echocardiogram shows normal ejection fraction. 2. Coronavirus disease 2019 with pneumonia. Patient has mild symptoms. Patient is not requiring any supplemental oxygen. Does have some cough. Continue with cough suppressants. Appreciate Pulmonology input. Dr. Hanson does not recommend any steroids or Zithromax. We will continue droplet isolation. 3. Hypothyroidism. Continue Synthroid. 4. Essential hypertension. Blood pressure somewhat elevated. We will continue his losartan, hydralazine p.r.n. 5. Deep vein thrombosis prophylaxis. Continue with Eliquis. Plan: We will try to wean off amiodarone drip, switch to oral, likely discontinue if continues to remain stable with controlled ventricular rate. Patient is day 8 of his COVID infection. /JESUS Voice ID: [id number] Report ID: [id number] BETH
[2020-02-24] MEDS: ONDANSETRON 4 MG/2 ML VIAL IV PRN (12:18)
[2020-02-24] MEDS: HYDROCODONE/APAP 5/325 MG TAB PO PRN ×2 (12:22→20:41)
[2020-02-24] MEDS ORDERED: METOPROLOL TARTRATE 5 MG/5 ML INJ IV ONE (13:26)
[2020-02-24] MEDS: DILTIAZEM HCL 60 MG TAB PO SCH ×2 (14:24→19:44)
--- NOTE | 2020-02-24 16:23 | RAD REPORT ---
EXAM DESCRIPTION: RAD - Abdomen Single View - 02/24/2020 4:10 pm CLINICAL HISTORY: Abdominal pain FINDINGS: Bowel gas pattern is unremarkable No abnormal calcifications seen
[2020-02-24] MEDS: DOCUSATE NA 100 MG CAP PO SCH (17:00)
[2020-02-25] MEDS: ACETAMINOPHEN 325 MG TABLET PO PRN ×3 (00:42→22:07)
[2020-02-25] MEDS: HYDROCODONE/APAP 5/325 MG TAB PO PRN ×2 (04:52→17:06)
[2020-02-25 06:13] LABS: Absolute Lymphocytes (CBC) 0.6 K/uL (0.7-4.9); Basophils % 0.2 % (0-1.3); Hematocrit 41.9 % (39.6-49.0); Lymphocytes % 7.8 % (15.3-44.8); MPV 8.5 fL (7.6-11.3); RBC Red Blood Cell Count 4.56 M/uL (4.33-5.43)
[2020-02-25 06:22] LABS: Albumin 2.9 g/dL (3.4-5.0); Bilirubin Total 0.8 mg/dL (0.2-1.0); Magnesium 2.1 mg/dL (1.8-2.4); Potassium 3.6 mmol/L (3.5-5.1); Protein, Total 6.4 g/dL (6.4-8.2)
[2020-02-25 07:14] LABS: Blood Morphology Comment NOT SEEN (NOT SEEN); Platelet Estimate ADEQ
[2020-02-25] MEDS: GUAIFENESIN 600 MG SA TAB PO SCH ×2 (07:51→19:57)
[2020-02-25] MEDS: FAMOTIDINE 20 MG TAB PO SCH ×2 (07:51→19:58)
[2020-02-25] MEDS: APIXABAN 5 MG TABLET PO SCH ×2 (07:51→19:57)
[2020-02-25] MEDS: DILTIAZEM HCL 60 MG TAB PO SCH (07:52)
[2020-02-25] MEDS: DOCUSATE NA 100 MG CAP PO SCH ×2 (07:52→19:57)
[2020-02-25] MEDS: LOSARTAN POTASSIUM 50 MG TABLET PO SCH (07:53)
[2020-02-25] MEDS: AMIODARONE HCL 200 MG TAB PO SCH ×2 (12:15→19:57)
[2020-02-25] MEDS: DILTIAZEM HCL 180 MG SR CAP PO SCH (13:10)
[2020-02-25] MEDS: GUAIFENESIN/CODEINE 5ML UCUP PO PRN ×2 (13:30→19:57)
--- NOTE | 2020-02-25 13:50 | PN ---
Date of Progress Note: 02/25/2020 Patient is seen through ICU isolation room and virtual visit was conducted and case discussed with Dr. Diez. Patient is doing better. Did complain of some abdominal pain yesterday. Feels constipated. Abdominal x-ray results reviewed with the patient. Otherwise, he is back in sinus rhythm. Medications: List reviewed. Physical Examination: Vital Signs: Temperature 97.5, T-max was 101 yesterday evening around 5 p.m., heart rate 71, blood pressure 142/76, respirations 19, O2 96% on room air. General: Awake, alert, oriented x3. Elderly male, obese, not in any acute distress. Respiratory: Does not appear to have any use of accessory muscles, talking comfortably. No use of accessory muscles. Neuro: Speech is normal. No facial asymmetry. Moves all 4 extremities. Skin: No visualized rashes. Psych: Mood is okay. Affect is full. Insight and judgment are good. Laboratory Data: Sodium 135, potassium 3.6, chloride 102, CO2 of 23, BUN 9, creatinine 1, glucose 112 calcium 7.8, magnesium 2.1, albumin 2.9. WBC 8.2, H and H 14 and 41.9, platelets 170, neutrophils 87%, 18% bands, lymphocytes 2. Blood cultures, no growth to date. Abdominal x-ray from 02/24/2020 shows unremarkable bowel gas pattern. Assessment: 69-year-old male with: 1. New-onset atrial fibrillation with rapid ventricular response, currently on amiodarone drip. We will increase amiodarone dose to 200 b.i.d., wean off the amiodarone drip and switch from Cardizem 30 t.i.d. to long-acting Cardizem 180. Continue Eliquis. Echo shows normal EF. 2. Coronavirus disease 2019 with pneumonia day 9, mild symptoms, not on any supplemental oxygen. Continue symptomatic treatment with cough suppressants. Appreciate Dr. Hanson's input. Continue droplet isolation. 3. Hypothyroidism. Continue Synthroid at a lower dose. 4. Essential hypertension. Continue losartan with hydralazine p.r.n. 5. Deep vein thrombosis prophylaxis with Eliquis. 6. Obesity. BMI 30.8. Plan: Wean off the amiodarone drip. We will continue to monitor for arrhythmias. Patient remains in sinus rhythm. We will discontinue in a.m. The patient was seen virtually. Physical examination was completed with assistance from the bedside RN. The assessment and plan is based on chart review. The history and physical examination findings gathered during this encounter. Every effort has been made to make this encounter comprehensive to the best of our abilities. Management will be updated and we will reassess in a.m. VIN Voice ID: [id number] Report ID: [id number] MTDD
[2020-02-26] MEDS: GUAIFENESIN/CODEINE 5ML UCUP PO PRN ×3 (02:20→14:35)
[2020-02-26] MEDS ORDERED: FAMOTIDINE 20 MG/2 ML VIAL IV ONE (05:12)
[2020-02-26] MEDS: ACETAMINOPHEN 325 MG TABLET PO PRN ×2 (05:22→14:35)
[2020-02-26] MEDS: BENZONATATE 100 MG CAP PO PRN ×2 (05:22→12:27)
[2020-02-26] MEDS: GUAIFENESIN 600 MG SA TAB PO SCH ×2 (07:53→21:00)
[2020-02-26] MEDS: DOCUSATE NA 100 MG CAP PO SCH (07:53)
[2020-02-26] MEDS: AMIODARONE HCL 200 MG TAB PO SCH ×2 (07:53→21:00)
[2020-02-26] MEDS: APIXABAN 5 MG TABLET PO SCH (07:53)
[2020-02-26] MEDS: LOSARTAN POTASSIUM 50 MG TABLET PO SCH (07:53)
[2020-02-26] MEDS: FAMOTIDINE 20 MG TAB PO SCH (07:54)
[2020-02-26] MEDS ORDERED: DILTIAZEM HCL 180 MG SR CAP PO SCH (09:00)
[2020-02-26] MEDS ORDERED: LEVOTHYROXINE SOD 0.125 MG TAB PO SCH (09:00)
--- NOTE | 2020-02-26 09:07 | P.DS ---
Admission Date: 02/22/20 Discharge Date: 02/26/20 Primary Care Provider: [facility] Disposition: ROUTINE DISCHARGE Discharge Condition: GOOD Reason for Admission: Shortness of breath, cough Consultations: Cardiology-Dr. Cuevas Pulmonary-Dr. Hanson Procedures: CXR: FINDINGS: No mass or consolidation identifiable. No focal infiltrative process seen. No failure or volume overload. Heart and vasculature are normal. No measurable pleural effusion and no pneumothorax. No acute bony abnormality seen. No acute aortic findings suspected. IMPRESSION: No acute cardiopulmonary process. Mildly prominent interstitial pattern is believed be baseline. ECHO: Ejection fraction 57% LEFT VENTRICULAR WALL MOTION: NORMAL. DOPPLER/COLOR FLOW: NORMAL. COMMENTS: NORMAL LEFT VENTRICULAR EJECTION FRACTION 55-60% WITH NORMAL METCALF. ATRIAL FIBRILLATION. Medical Problem List: New onset atrial fibrillation with RVR now normal sinus rhythm, on chronic anti coagulation therapy COVID 19 positive with bilateral viral pneumonia Hypothyroidism Hypertension Brief History of Present Illness: 69-year-old male presented to the emergency room with shortness of breath. Patient had recently tested positive for COVID 19. Patient presented with shortness of breath. Patient found to have new onset atrial fibrillation with RVR. Patient was admitted for further evaluation and treatment. Hospital Course: Patient presented with shortness of breath secondary to new onset atrial fibrillation with RVR. Patient was placed on anti coagulation therapy along with antiarrhythmic medication. Patient has done well. Patient seen by Cardiology. Echocardiogram shows normal ejection fraction. Patient initially started on IV amiodarone. This has been adjusted to oral medication. Cardiology recommends to continue with amiodarone, Cardizem, and Eliquis. Cardiology also recommends to decrease thyroid medication. At discharge patient in normal sinus rhythm. At discharge patient will continue with amiodarone 200 mg 1 pill twice daily, Cardizem CD 180 mg daily, and Eliquis 5 mg 1 pill twice daily. Thyroid medication-levothyroxine has been decreased from 125 mcg to 112 mcg. Recommend to recheck thyroid panel-tsh and free T4 in 4-6 weeks to further monitor and adjust medication. Education on medication will be provided. Education on atrial fibrillation will also be provided. Recommendations for the patient follow up with cardiology in 1-2 weeks to follow up this hospitalization. Patient recently positive for COVID 19. Chest x-ray showed no consolidation. Patient seen and evaluated by pulmonology. Viral pneumonia suspected. No need for antibiotic therapy. Patient will be given symptomatic support. Patient may continue with Mucinex 600 mg 1 pill twice daily for congestion and Tessalon Perles 1 pill 3 times a day as needed for cough. Recommend follow up with PCP in 1-2 weeks to monitor resolution. COVID education and follow up will need to be continued. Patient with hypothyroidism. Thyroid level slightly abnormal. Cardiology recommended to decrease medication. Recommend to continue with levothyroxine 112 mcg daily. Recommend to recheck tsh and free T4 in 4-6 weeks to monitor and adjust medication. Patient with hypertension. Patient will continue with above recommendations. Patient will continue with Cardizem CD 180 mg daily and losartan 100 mg daily. Recommend to maintain blood pressure less 150/80. Further adjustment can be done by cardiology or his PCP. Vital Signs/Physical Exam: Temp Pulse Resp BP Pulse Ox 100.5 F 71 18 140/73 95 02/26/20 05:22 02/26/20 06:00 02/26/20 06:00 02/26/20 06:00 02/26/20 06:00 General: Alert, In no apparent distress, Oriented x3, Cooperative HEENT: Atraumatic Neck: Supple Respiratory: Clear to auscultation bilaterally, Normal air movement Cardiovascular: Normal pulses, Regular rate/rhythm Gastrointestinal: Normal bowel sounds, Soft and benign, Non-distended, No masses, No rebound, No guarding Neurological: Normal speech, Normal strength at 5/5 x4 extr, Normal tone, Normal affect Laboratory Data at Discharge: WBC 8.2 K/uL (4.3-10.9) D 02/25/20 05:45 Hgb 14.0 g/dL (13.6-17.9) 02/25/20 05:45 Hct 41.9 % (39.6-49.0) 02/25/20 05:45 Plt Count 170 K/uL (152-406) 02/25/20 05:45 PT 11.6 SECONDS (9.5-12.5) 02/21/20 10:05 INR 0.98 02/21/20 10:05 APTT 30.9 SECONDS (24.3-36.9) 02/21/20 10:05 Sodium 135 mmol/L (136-145) L 02/25/20 05:45 Potassium 3.6 mmol/L (3.5-5.1) 02/25/20 05:45 BUN 9 mg/dL (7-18) 02/25/20 05:45 Creatinine 1.00 mg/dL (0.55-1.3) 02/25/20 05:45 Glucose 112 mg/dL (74-106) H 02/25/20 05:45 Magnesium 2.1 mg/dL (1.8-2.4) 02/25/20 05:45 Total Bilirubin 0.8 mg/dL (0.2-1.0) 02/25/20 05:45 AST 32 U/L (15-37) 02/25/20 05:45 ALT 46 U/L (12-78) 02/25/20 05:45 Alkaline Phosphatase 94 U/L (45-117) 02/25/20 05:45 Troponin I 0.02 ng/mL (0.0-0.045) 02/22/20 05:03 Lipase 175 U/L (73-393) 02/21/20 10:05 Home Medications: Losartan Potassium [Cozaar] 100 mg PO DAILY 02/21/20 Amiodarone HCl [Cordarone*] 200 mg PO BID #60 tab 02/26/20 Apixaban [Eliquis] 5 mg PO BID #60 tablet 02/26/20 Benzonatate [Tessalon Perle*] 100 mg PO TID PRN #15 cap 02/26/20 Diltiazem Cd [Cardizem Cd] 180 mg PO DAILY #30 cap 02/26/20 Famotidine [Pepcid*] 20 mg PO BID #60 tab 02/26/20 Guaifenesin [Mucinex] 600 mg PO BID #30 tab.er.12h 02/26/20 Levothyroxine [Synthroid*] 0.112 mg PO DAILY #30 tab 02/26/20 New Medications: Diltiazem Cd [Cardizem Cd] 180 mg PO DAILY #30 cap Amiodarone HCl [Cordarone*] 200 mg PO BID #60 tab Apixaban [Eliquis] 5 mg PO BID #60 tablet Guaifenesin [Mucinex] 600 mg PO BID #30 tab.er.12h Famotidine [Pepcid*] 20 mg PO BID #60 tab Levothyroxine [Synthroid*] 0.112 mg PO DAILY #30 tab Benzonatate [Tessalon Perle*] 100 mg PO TID PRN #15 cap PRN Reason: Cough Patient Discharge Instructions: 1. Recommend follow up with PCP in 1 week to follow up this hospitalization. 2. Patient presented with shortness of breath secondary to new onset atrial fibrillation with RVR. Patient was placed on anti coagulation therapy along with antiarrhythmic medication. Patient has done wel l. Patient seen by Cardiology. Echocardiogram shows normal ejection fraction. Patient initially started on IV amiodarone. This has been adjusted to oral medication. Cardiology recommends to continue with amiodarone, Cardizem, and Eliquis. Cardiology also recommends to decrease thyroid medication. At discharge patient in normal sinus rhythm. At discharge patient will continue with amiodarone 200 mg 1 pill twice daily, Cardizem CD 180 mg daily, and Eliquis 5 mg 1 pill twice daily. Thyroid medication-levothyroxine has been decreased from 125 mcg to 112 mcg. Recommend to recheck thyroid panel-tsh and free T4 in 4-6 weeks to further monitor and adjust medication. Education on medication will be provided. Education on atrial fibrillation will also be provided. Recommendations for the patient follow up with cardiology in 1-2 weeks to follow up this hospitalization. 3. Patient recently positive for COVID 19. Chest x- ray showed no consolidation. Patient seen and evaluated by pulmonology. Viral pneumonia suspected. No need for antibiotic therapy. Patient will be given symptomatic support. Patient may continue with Mucinex 600 mg 1 pill twice daily for congestion and Tessalon Perles 1 pill 3 times a day as needed for cough. Recommend follow up with PCP in 1-2 weeks to monitor resolution. COVID education and follow up will need to be continued. 4. Patient with hypot hyroidism. Thyroid level slightly abnormal. Cardiology recommended to decrease medication. Recommend to continue with levothyroxine 112 mcg daily. Recommend to recheck tsh and free T4 in 4-6 weeks to monitor and adjust medication. 5. Patient with hypertension. Patient will continue with above recommendations. Patient will continue with Cardizem CD 180 mg daily and losartan 100 mg daily. Recommend to maintain blood pressure less 150/80. Further adjustment can be done by cardiology or his PCP. Diet: AHA Activity: Ad gisel Time spent managing pt's care (in minutes): 55
[2020-02-26 09:38] LABS: Absolute Lymphocytes (CBC) 0.5 K/uL (0.7-4.9); Basophils % 0.2 % (0-1.3); Lymphocytes % 4.7 % (15.3-44.8); MPV 8.4 fL (7.6-11.3); RBC Red Blood Cell Count 4.44 M/uL (4.33-5.43)
[2020-02-26] MEDS: LEVOTHYROXINE SOD 0.112 MG TAB PO SCH (11:21)
[2020-02-26] MEDS: ONDANSETRON 4 MG/2 ML VIAL IV PRN (12:05)
[2020-02-26] MEDS: DILTIAZEM HCL 180 MG SR CAP PO SCH (12:20)
--- NOTE | 2020-02-26 12:36 | RAD REPORT ---
EXAM DESCRIPTION: Ellie Single View02/26/2020 9:23 am CLINICAL HISTORY: Shortness of breath COMPARISON: February 21, 2020 FINDINGS: Mild right basilar opacities. Equivocal mild left lung opacities. Lucency is present inferior to the heart IMPRESSION: Mild right and possible left pulmonary opacities probably pneumonia Lucency inferior to the heart may represent air within bowel or pneumoperitoneum. CT abdomen would be helpful for further evaluation if clinically indicated The patient's nurse Denisse was notified 12:30 p.m. September 27, 2019
[2020-02-26] MEDS ORDERED: PROMETHAZINE INJ 25 MG/ML AMP IV SCH ×2 (14:00)
[2020-02-26] MEDS ORDERED: PROMETHAZINE INJ 25 MG/ML AMP IV PRN (14:24)
[2020-02-26] MEDS ORDERED: IBUPROFEN 400 MG TAB PO ONE (16:00)
--- NOTE | 2020-02-26 16:08 | PN ---
Date of Progress Note: 02/25/2020 Subjective: Seen at bedside, is doing better, back in sinus rhythm. Still on amiodarone drip. Review of Systems: No chest pain. Mild shortness of breath. No nausea, vomiting, diarrhea, abdominal pain. No history of urinary urgency. No skin rash. All other systems reviewed and are negative. Physical Examination: Vital Signs: A temperature of 99.9, pulse 86, breathing at 18, blood pressure 133/90, saturating 92% . General: Pleasant elderly male in no apparent distress. Head and Neck: Pupils are equal, react to light. Intact eye movements. No JVD. No cervical lympha denopathy. Neck supple. Thyroid is not enlarged. Lungs: Clear to auscultation bilaterally. No rhonchi, rales, crackles. No use of accessory muscles . Heart: Regular rate and rhythm. No extra sounds. Abdomen: Soft, nontender. Bowel sounds positive. No organomegaly. No masses or hernia. No rigidi ty or rebound. Extremities: No edema, clubbing, cyanosis. Intact pulses. Skin: No rash. Neurologic: Alert, awake, oriented x3. No focal deficits noted. Investigations: Creatinine is 1, BUN is 9. Assessment And Plan: 1.Atrial fibrillation with rapid ventricular response, converted to sinus rhythm. This is his secon d load of amiodarone, switching to oral amiodarone 200 mg twice a day and add Cardizem 30 mg q.8 hour s. Increase to 6 mg q.8 hours. If blood pressure tolerates and may transfer to the floor. 2.Acute respiratory failure due to probably coronavirus disease 2019 infection plus heart failure sy mptoms from the rapid atrial fibrillation. Much better controlled now. The patient is being managed by primary hospitalist. 3.Hypertension. Blood pressure will get better with add on of the Cardizem. SR/MODL Voice ID: [id number] Report ID: [id number]
--- NOTE | 2020-02-26 16:08 | PN ---
Date of Progress Note: 02/26/2020 Subjective: Seen at the bedside. He is asymptomatic, doing very well. Converted to sinus rhythm si nce yesterday and remains in sinus rhythm. Review of Systems: No dizziness. No chest pain, shortness of breath, orthopnea, cough. No nausea, vomiting, diarrhea. No abdominal pain. No history of urinary urgency. No dizziness nor syncope. All other systems rev iewed, all are negative. Physical Examination: Vital Signs: Temperature is 99.5, pulse 77, breathing at 17, blood pressure is 146/84, saturating 92 %. General: Pleasant, elderly male, in no apparent distress. Head and Neck: Pupils are equal and react to light. Intact eye movements. Neck: No JVD. No cervical lymphadenopathy. Neck is supple. Thyroid is not enlarged. Lungs: Clear to auscultation bilaterally. No rhonchi, rales, crackles. No accessory muscle use. Heart: Regular rate and rhythm. No extra sounds. Abdomen: Soft, nontender. Bowel sounds positive. No organomegaly. No masses or hernia. No rigidi ty or rebound. Extremities: No edema, clubbing, cyanosis. Intact pulses. Skin: No rash. Neurologic: Alert, awake, oriented x3. No acute focal deficits appreciated. Lymph Nodes: No cervical or axillary lymphadenopathy. Investigations: Labs showed a sodium of 135, BUN is 9, creatinine is 1. White blood cell count is 1 0.7. Assessment/plan: 1.Atrial fibrillation with rapid ventricular response, converted to sinus rhythm. Continue amiodaro ne 200 mg twice a day, Cardizem extended release 180 mg daily, and Eliquis 5 mg twice a day. Follow up with me in the office in 4 weeks. If condition is stable, we will decrease the dose of amiodarone back then to 200 once a day and try to taper him off the amiodarone gradually with adjustment of his Cardizem. 2.Hypertension. Blood pressure is better. Continue current management. 3.Hypothyroidism. Again to make sure that TSH normalizes as hyperactive thyroid is the contributing factor for his atrial fibrillation. I will sign off on this case and please have the patient follow up with me in the office in 4 weeks. I appreciate letting me to participate in your patient's care. /JESUS Voice ID: [id number] Report ID: [id number]
--- NOTE | 2020-02-26 16:08 | PN ---
Date of Progress Note: 02/24/2020 Subjective: Was seen by bedside. The patient was on the floor and went back into atrial fibrillatio n and started having more shortness of breath. Review of Systems: No nausea, vomiting, diarrhea. No abdominal pain, dysuria, or urinary urgency. No skin rash. All o ther systems reviewed were negative. Physical Examination: Vital Signs: His temperature is 99.4, heart rate is 125-135, and blood pressure is 162/74, saturatin g 92% with oxygen. General: An elderly male, in no apparent distress. Head and Neck: Pupils are equal, react to light. Intact eye movements. No JVD. No cervical lympha denopathy. Neck supple. Thyroid is not enlarged. Lungs: Decreased breathing sounds bilaterally. No rhonchi. No accessory muscle use. Heart: Irregularly irregular. No extra sounds. Abdomen: Soft, nontender. Bowel sounds positive. No organomegaly. No masses or hernia. No rigidi ty or rebound. Extremities: No edema, clubbing, cyanosis. Intact pulses. Skin: No rash was noted. Neurologic: Alert, awake, oriented x3, no focal deficits noted. Investigations: The labs were reviewed. Assessment And Plan: 1.Atrial fibrillation. The patient first went into sinus and then back into atrial fibrillation. D ue to large body habitus, I moved him back to ICU and loaded again with 150 mg of amiodarone over 10 minutes and then 1 mg/minute for 24 hours and then switched him to 200 twice a day after that and the n plan to introduce Cardizem as well for rate control purposes and continue Eliquis. 2.Hypothyroidism. TSH on the low side. Recommend decreasing dose of the LT4 and repeat TSH in 4-6 weeks. 3.Hypertension. Blood pressure is elevated, introduce Cardizem as above and adjust further if neede d. SR/MODL Voice ID: [id number] Report ID: [id number]
--- NOTE | 2020-02-26 16:21 | RAD REPORT ---
EXAM DESCRIPTION: CT - Abdomen Pelvis Wo Contrast - 02/26/2020 2:01 pm CLINICAL HISTORY: nausea/vomiting, Evaluate for pneumoperitoneum COMPARISON: No comparisons TECHNIQUE: Axial [address] imaging of the abdomen and pelvis was performed without IV contrast. No IV contrast was given because of allergy, abnormal renal function, patient refusal or physician re quest. No oral contrast administered. All CT scans are performed using dose optimization technique as appropriate and may include automated exposure control or mA/KV adjustment according to patient size. FINDINGS: Scarring and atelectasis changes are present in the posterior lung bases. Patient has patc hy peripheral ground-glass opacities in the lung camacho. This is a typical COVID-19 infection pattern . No cardiomegaly or pericardial effusion. The liver, spleen and pancreas show no suspicious findings on non-contrast imaging. Gallbladder and b iliary tree are also without suspicious finding. No hydronephrosis or suspicious renal mass. Multiple bilateral round low-density masses are present t ypical for cysts. No significant adrenal finding. Isodense renal masses and pyelonephritis cannot be excluded in the absence of IV contrast. The urinary bladder is without significant finding. Patient has a minimal hiatal hernia. There is no wall thickening or mass of the stomach. No CT findin g for ulceration or gastric wall perforation. No gastric wall pneumatosis. Distal small bowel is decompressed. There are prominent distended to minimally dilated proximal and m id small bowel loops. Stranding is present adjacent to a short segment of mid small bowel. No pneumat osis. Patient has moderate left-sided diverticulosis. No diverticulitis evident. No colon wall mass, wall t hickening or perforation identifiable. Patient has a moderately large volume of free intraperitoneal air. This is the correlate to the plain film finding. Source for the free air is not evident. Typical: An stomach etiologies are not evident . Small bowel is abnormal but this may be secondary. A small bowel perforation cannot be excluded ; h owever, the absence of fluid decreases small bowel source probability. Bilateral fat filled inguinal hernias are present. No suspicious bony findings. Findings telephoned to the referring physician 4:15 p.m.. Doctor Of [facility] technical malfunctions preclu ded earlier dictation. IMPRESSION: Moderate volume of free intraperitoneal air. Patient has little or no free fluid. Patient has extensive diverticulosis without acute diverticulitis and no obvious site of colon perfor ation. No gastric wall thickening or mass. No area of gastric abnormality that would suggest ulcer perforati on. Several distended to mildly dilated small bowel loops are present in the mid abdomen. There is some s tranding and edema in the adjacent fat. A small bowel perforation is possible but not common for this pattern. Small bowel changes are potentially secondary to the free air. Bilateral peripheral airspace infiltrate pattern typical for COVID-19 infection. Full assessment is limited is the absence of IV contrast.
--- NOTE | 2020-02-26 16:34 | P.PN ---
Subjective Date of Service: 02/26/20 Primary Care Provider: [facility] Chief Complaint: Shortness of breath, cough Subjective: Other (Patient was to be discharged but he started to have nausea and vomiting this am. DC cancelled.) Physical Examination - Vital Signs Temperature: 101 F Blood Pressure: 123/61 Pulse: 71 Respirations: 15 Pulse Ox (%): 91 - Physical Exam General: Alert HEENT: Atraumatic Neck: Supple Respiratory: Clear to auscultation bilaterally, Normal air movement Cardiovascular: Normal pulses, Regular rate/rhythm Gastrointestinal: Other (This am, he did not have abdominal pain. ) Neurological: Normal speech, Normal strength at 5/5 x4 extr, Normal tone, Normal affect - Studies Microbiology Data (last 24 hrs): 02/21/20 10:05 Blood - Blood Aerobic Blood Culture - Final No growth in 5 days. 02/21/20 10:05 Blood - Blood Anaerobic Blood Culture - Final No growth in 5 days. 02/21/20 10:15 Blood - Blood Aerobic Blood Culture - Final No growth in 5 days. 02/21/20 10:15 Blood - Blood Anaerobic Blood Culture - Final No growth in 5 days. Medications List Reviewed: Yes Assessment & Plan Discharge Plan: Home Plan to discharge in: 48 Hours Physician Review Additional Text: Impression: Nausea/Vomiting with abnormal CT scan showing Free air in the abdomen, source is unknown New onset Atrial fibrillation with RVR, now NSR HTN Hypothyroidism COVID 19 with viral bilateral pneumonia Plan: DC order has been cancelled. Cased discussed with Radiology concerning CT findings. Etiology of free air unknown but he does have a lot of diverticulosis. Case discussed with Surgery. Will keep NPO. Start Zosyn. Will need to adjust medication for IV. Will update Pulmonary and Cardiology. Time Spent Managing Pts Care (In Minutes): 55
[2020-02-26] MEDS ORDERED: SODIUM CHLORIDE 0.9% 10ML INJ IV PRN (17:13)
[2020-02-26] MEDS: PIPER/TAZO/NS 3.375gm 3.375 GM/100 ML BAG IVPB SCH (18:29)
[2020-02-26 19:52] LABS: MPV 8.7 fL (7.6-11.3); Protime INR 1.71
[2020-02-26 20:02] LABS: Platelet Estimate ADEQ
[2020-02-26] MEDS ORDERED: ENOXAPARIN 100 MG/ML SYR SQ SCH (21:00)
[2020-02-26] MEDS ORDERED: Ringers Lactate 1,000 ML IV ONE (21:21)
[2020-02-26] MEDS ORDERED: propofoL 200 MG/20 ML VIAL IV ONE ×2 (21:31→23:23)
[2020-02-26] MEDS ORDERED: SUCCINYLCHOLINE 20 MG/ML (10 ML) IV ONE (21:33)
[2020-02-26] MEDS ORDERED: ROCURONIUM 50 MG/5 ML VIAL IV ONE (21:34)
[2020-02-26] MEDS ORDERED: LIDOCAINE 2% MPF 5 ML VIAL ONE (21:35)
[2020-02-26] MEDS ORDERED: Phenylephrine HCl 10 MG/ML 1 ML VIAL ONE ×2 (21:35→21:49)
[2020-02-26] MEDS ORDERED: FENTANYL CITR 100 MCG/2 ML ONE (22:47)
[2020-02-26] MEDS ORDERED: ONDANSETRON 4 MG/2 ML VIAL ONE (22:59)
[2020-02-26] MEDS ORDERED: KETOROLAC 30 MG/ML INJ ONE (22:59)
[2020-02-26] MEDS ORDERED: GLYCOPYRROLATE 0.2 MG/ML SYR ONE (23:12)
[2020-02-26] MEDS ORDERED: NEOSTIGMINE 1 MG/ML -5 ML ONE (23:13)
--- NOTE | 2020-02-26 23:37 | CON ---
Date of Consultation: 02/26/2020 Brief History Of Present Illness: Patient is a 69-year-old male who presents to the hospital with wo rsening cough and shortness of breath. He had been traveling to [place] 1 week prior to his arri joi here to the hospital and hung out with a group of friends, since then, he had been feeling weak a nd fatigued and had a new onset cough which lasted for approximately 3 days consistently. He went to [facility] for COVID testing 2 days prior to his admission on 02/20, was found to be COVID positive at [facility]. He admits to fever and chills at home. He presented due to shortness of breath. He was no deirdre to have atrial fibrillation with RVR with a rate up to 140s during his admission, but improved to 110 with metoprolol. He denied any abdominal pain and denies any history of atrial fibrillation in the past. He was brought to the hospital. He was rate controlled down to the 70s and given anticoag ulation initially with IV, then transitioned to Eliquis. He had received Eliquis as of today this mo rning on 02/26/2020. He states that he started having a generalized mild abdominal pain beginning ye afternoon and got progressively worse over the course of the day. It is only tenderness pred ominantly and with minimal pain. The pain has been getting slightly worse over the course of the day . The patient had a chest x-ray, which incidentally had findings suspicious for abdominal free air. As such, a CT scan was performed, which showed a significant amount of free air in the abdomen, as s uch I was consulted to see the patient with the above stated issue. The patient is COVID positive an d remains in negative pressure therapy. During my examination, I wore all COVID protective PPE inclu ding N95, and all PPE appropriate for exposure to COVID positive patients. Past Medical History: Significant for hypertension, hyperlipidemia, thyroiditis. Past Surgical History: He has had a hernia repair, partial thyroidectomy. Allergies: NO KNOWN DRUG ALLERGIES. Social History: Denies smoking, alcohol, or recreational drug use. Home Medications: Prior to admission included Tessalon, Pepcid, Mucinex, Synthroid, and Cozaar. Review of Systems: Ten-point review of systems other than HPI, he feels somewhat fatigued and tired at this point. Othe rwise, HPI covers all the remaining review of systems. Physical Examination: Vital Signs: At time of my examination his BMI is 30.8. His blood pressure 144/82, heart rate 72, r espiratory rate 20, temperature 98.0. His abdominal pain is a 2/10 during my examination. General: He is awake, alert, oriented. Psychiatric: He is appropriate conversive. HEENT: Normocephalic. Sclerae anicteric. Mucous membranes are moist. Oropharynx clear. Neck: Supple. No JVD. Chest: Normal expansion excursion. Decreased breath sounds bilaterally. Cardiovascular: Regular rate, irregular rhythm. Abdomen: He is distended and has global tenderness to palpation. He has global peritoneal signs and his tympanic consistent with the findings of free air on imaging. Extremities: No clubbing, cyanosis, edema. Skin: Warm and dry. Laboratory Data: Reveals a white blood cell count of 10.7, hemoglobin 13.8, hematocrit of 41.0, plat elet count is 196. His neutrophils are 91%, neutrophils yesterday on 02/24 were 18. His sodium yest erday 135, potassium 3.6, chloride 102, carbon dioxide is 23, BUN 9, creatinine 1.0, glucose 112. Hi s calcium is 7.8, magnesium 2.1, total bilirubin 0.8, AST 32, ALT 46, alkaline phosphatase 94. He arnold d imaging performed which included a CT scan of the abdomen and pelvis as described, which was offici ally read on 02/[address] Diego as moderate volume of free intraperitoneal air. Patient has little or no free fluid. The patient has extensive diverticulosis without acute diverticulitis and no obvi ous site of colon perforation. No gastric wall thickening or mass. No areas of gastric abnormality would suggest ulcer perforation. Several distended to mildly dilated small bowel loops are present i n the mid abdomen. There is some stranding and edema in the adjacent fat. The small bowel perforati on is possible, but not common for this pattern. Small bowel changes are potentially secondary to fr ee air. Bilateral peripheral airspace infiltrate pattern typical for COVID19 infection. Full assess ment is limited by lack of IV contrast. Assessment And Plan: This is a 69-year-old male with Coronavirus disease positive, atrial fibrillati on, rapid ventricular response on Eliquis, who now has free air and worsening abdominal symptoms cons istent with perforation and peritonitis. His heart rate is variable throughout my examination, but h as been slowly creeping up from the 70s as such. I have explained the risks, benefits, and alternati ves of operative versus nonoperative management including, but not limited to, bleeding, significant bleeding risk as he has received blood thinners as of this morning, infection, he has Coronavirus dis ease positive infection, which might make his postoperative course more complicated, damage to surrou nding tissues, need for further operations, temporary abdominal closure requiring more surgery, blood clots, strokes, heart attacks, disability and are all possible. He is a very high risk patien t due to his multiple comorbidities and current medical condition. 1.We will proceed with surgery this evening as discussed with his family as well as myself and feels that his abdominal symptoms are worsening and as such, he is concerned about sepsis and he agrees to proceed with surgical intervention this time. Continue antibiotics. Get a type and screen prior to surgery and the patient will be returned to the ICU. We will use Coronavirus disease protection PPE for all staff involved in his care throughout the procedure and we will use our COVID room for this in the operating room. TONY Voice ID: [id number] Report ID: [id number]
--- NOTE | 2020-02-26 23:43 | P.OP ---
Preoperative diagnosis: Pneumoperitoneum Postoperative diagnosis: Pneumoperitoneum Primary procedure: Exploratory Laparotomy Secondary procedure: Appendectomy Other procedure(s): Washout Anesthesia: GETA Estimated blood loss: <20cc Specimen: Appendix Findings: central pelvic abscess, no visceral perforation discovered Complications: None Drain(s): NICOLE drain (10 mm Flat) Implants: none Transferred to: ICU Condition: Serious
[2020-02-27] MEDS: INSULIN -REGULAR HUMAN 50 UNIT/0.5 ML ML SQ SCH ×4 (00:53→16:48)
[2020-02-27] MEDS ORDERED: D50W 25 GM/50 ML SYRINGE/VIAL IV PRN (00:53)
[2020-02-27] MEDS ORDERED: GLUCAGON 1 MG/VIAL IM PRN (00:53)
[2020-02-27] MEDS: HEPARIN 5000 UNIT/ML 1 ML VIAL SQ SCH (00:55)
[2020-02-27] MEDS: D5.45NS W/KCL 20MEQ 1,000 ML IV SCH ×4 (00:57→22:40)
[2020-02-27] MEDS: PIPER/TAZO/NS 3.375gm 3.375 GM/100 ML BAG IVPB SCH ×3 (00:57→16:34)
[2020-02-27] MEDS: HYDROMORPHONE HCL 1 MG/ML INJ IV PRN ×6 (02:24→22:46)
--- NOTE | 2020-02-27 02:47 | OP ---
Date of Procedure: 02/26/2020 Surgeon: jE Venegas MD, Preoperative Diagnosis: Pneumoperitoneum. Postoperative Diagnosis: Pneumoperitoneum. Procedure Performed: 1.Exploratory laparotomy. 2.Open appendectomy. 3.Abdominal washout. Anesthesia: General endotracheal. Estimated Blood Loss: Less than 20 mL. Specimen: Vermiform appendix. Findings: 1.No visceral perforation discovered. 2.Central pelvic abscess extending from the space of Retzius to slightly left of midline. 3.Inflammatory fluid evident in the right lower quadrant with a somewhat dilated appearance to the p roximal/base of the appendix with no obvious perforation. 4.Inflammatory fluid in the area of the left lower quadrant as well near the sigmoid colon. Complications: None. Drains: A 10 mm flat NICOLE drain placed in the left lower quadrant. Implants: None. Disposition: Transferred to ICU in serious condition. Brief History Of Present Illnes: The patient is a 69-year-old male, who was brought to the hospital with shortness of breath, found to be COVID positive. Ultimately during his admission, he was discov ered to have pneumoperitoneum of an uncertain etiology, therefore he was deemed appropriate for opera tive intervention. However, patient has been taking Eliquis as of this morning. After discussing th e risks, benefits, alternatives, and increased perioperative risks associated with surgical intervent ion, we agreed to proceed with surgery as the patient had a relatively large amount of pneumoperitone um and he had worsening abdominal tenderness symptoms and signs and symptoms consistent with a worsen ing peritonitis. Procedure In Detail: After informed consent was obtained, the patient was prepped and draped in the usual sterile fashion. Using PPE, all staff was properly wearing N95 particular aspirators as well a s head gear, eye wear, and impervious gowns throughout the procedure and using proper PPE protocol we initiated the case. The patient was prepped and draped in the usual sterile fashion. After adequat e anesthesia was achieved, I began with an upper midline incision extending to a laparotomy incision with a 10 blade down through subcutaneous tissues. Electrocautery was used to dissect down meticulou sly through subcutaneous tissues using meticulous hemostasis as the patient is currently on anticoagu lation. Good hemostasis was achieved down to the layer of the fascia. The linea alba was dissected and opened using electrocautery and dissection continued down to the peritoneal mesh. The peritoneum was grasped, elevated, and entered sharply with a Metzenbaum scissor and an immediate large jimenez of air was appreciated at this point. It had no feculent odor at this point, however, wearing an N95 ma ss may have masked the normal perceptions. As such, the abdomen was then opened in its entirety unde r direct visualization without evidence of complication. After the abdomen was opened, beginning in the area of the stomach, I inspected the stomach in the anterior direction all the way through the py lorus. The stomach was found to be quite soft with an NG tube in place without any evidence of infla mmatory changes, scarring, thickening or fluid in this area. I opened the posterior sac and inspecte d the posterior aspect of the stomach and obviously this area also had no fluid or inflammatory rowley es consistent with a recent perforation. Therefore, I felt around the C-loop of the small bowel and did not feel any obvious thickening or concern in the postpyloric regions, the C-loop did not have an y evidence of fluid collection in this area as well. I then turned my attention to the small bowel r unning from the ligament of Treitz, I ran the small bowel in its entirety. There, near the distal sm all bowel, were some areas of small bowel, which had inflammatory changes and some inflammatory rind on the anterior surface consistent with a pelvic abscess. They were minimally adherent to the anteri or abdominal wall in the pelvis. These distal aspects of small bowel, however, easily moved and with out any evidence of perforation. I pressurized these segments of small bowel between my fingers and milked small bowel entericus antegrade and retrograde to see if perforation could be appreciated and reproduced, however none was appreciated throughout these 2 predominant small segments of small bowel in the distal aspect, which had inflammatory changes. I then continued down to the ileocecal valve and inspecting the right lower quadrant, the colon was palpated and found to be quite soft and pliabl e in the cecum and the right colon; however, the appendix was found to have a somewhat dilated appear ance at the base of the appendix. Therefore, an appendiceal window was created through the mesoappen lexi and a PAMELA 35 blue load was fired across the base of the appendix and the LigaSure was used to joel e the mesoappendix down and the appendix was passed off for pathologic examination. This did not weston ear to have any perforation or significant inflammatory changes. However, there was inflammatory flu id in the region. As such the appendix was removed. I then inspected the area and ran the colon sup eriorly palpating and visualized the intraperitoneal portions of the colon and the ascending colon/ri ght colon up to the transverse colon, which was also palpated and inspected in the anterior and poste rior positions and no obvious perforations were appreciated. I then made the turn down to the descen ding colon and the descending colon does not have any obvious issues until I approached the sigmoid c olon, which had some diverticulum evident, but no obvious perforations were appreciated. The colon w as palpated and there was some inflammatory changes and some inflammatory fluid in the left lower harpreet drant, however no obvious perforations were appreciated. I decided to mobilize the sigmoid colon by taking down the white line for better inspection bringing the colon more to the midline and inspectin g it, I found that there were just inflammatory changes and some fluid in the sigmoid colon, but no o bvious perforations. The palpation of the colon only had a somewhat firmer appearance to the sigmoid colon generally, but no obvious perforation and I could not reproduce by leak testing, bubble testin g the colon for any evidence of leakage or perforation. I therefore continued down in the rectum and palpated the rectum, which was found to be quite soft and pliable. In addition, leak test showed no evidence of leakage at this point. After leak tests were complete, I ran the small bowel colon once again and did not find any obvious issues in this area. Therefore, I irrigated the abdomen multiple times until completely clear, removing all murky-appearing fluid, which was most evident in the spac e of Retzius/rectal areas. While I had no confirmation, I suspected that the sigmoid colon was likel y the source of the perforation, as I stated earlier a hole could not be appreciated and leak test wa s unsuccessful at reproducing any evidence of leakage. Therefore, I feel that this hole likely theodora d and I could not determine the exact location of this. As such, after the abdomen was copiously irr igated multiple times, I decided to place a 10 mm flat NICOLE drain in the left colic gutter along the si gmoid colon. I placed this and secured it to the skin in the left lower quadrant. I then placed a t ongue of vascularized omentum into the left lower quadrant and into the rectal space and brought the abdomen. I decided to close the abdomen with a #1 looped PDS primarily with good apposition of tissu es. I then copiously irrigated the subcutaneous skin and the tissues and closed the skin with interr upted mello and sterile dressing placed over top. The patient tolerated the procedure well without evidence of complication, transferred back to the ICU in serious condition. All counts were correct at the end of the case. EARLENE/JESUS Voice ID: [id number] Report ID: [id number]
[2020-02-27 05:08] LABS: Absolute Lymphocytes (CBC) 0.3 K/uL (0.7-4.9); Basophils % 0.3 % (0-1.3); Hematocrit 44.4 % (39.6-49.0); Lymphocytes % 3.4 % (15.3-44.8); MPV 8.5 fL (7.6-11.3); RBC Red Blood Cell Count 4.77 M/uL (4.33-5.43)
[2020-02-27 05:10] LABS: Protime INR 1.51
[2020-02-27 05:30] LABS: Phosphorus 3.8 mg/dL (2.5-4.9)
[2020-02-27 05:32] LABS: Potassium 3.9 mmol/L (3.5-5.1)
[2020-02-27 05:33] LABS: Magnesium 2.2 mg/dL (1.8-2.4)
[2020-02-27] MEDS: LEVOTHYROXINE SOD 0.112 MG TAB PO SCH (05:53)
[2020-02-27] MEDS: AMIODARONE HCL 450 MG in D5W 241 ML IV SCH ×2 (06:03→16:55)
[2020-02-27] MEDS ORDERED: AMIODARONE IN DEXTROSE,ISO-OSM 360 MG/200 ML BAG IV ONE (06:10)
--- NOTE | 2020-02-27 07:09 | P.PN ---
Subjective Date of Service: 02/27/20 Patient is postop day#1. Patient had free air underneath the diaphragm. Patient taken to the OR; leak test negative; appendectomy performed. Patient NPO; will start meds IV x 24hrs and then oral meds with sips of water. Review of Systems 10-point ROS is otherwise unremarkable Physical Examination - Vital Signs Temperature: 99.0 F Blood Pressure: 116/63 Pulse: 80 Respirations: 15 Pulse Ox (%): 94 - Physical Exam General: Alert, In no apparent distress, Oriented x3 Respiratory: Clear to auscultation bilaterally, Normal air movement Cardiovascular: Regular rate/rhythm, Normal S1 S2, No murmurs Gastrointestinal: Normal bowel sounds, Soft and benign, Non-distended, No tenderness Musculoskeletal: No clubbing, No tenderness, Swelling - Studies Microbiology Data (last 24 hrs): 02/21/20 10:05 Blood - Blood Aerobic Blood Culture - Final No growth in 5 days. 02/21/20 10:05 Blood - Blood Anaerobic Blood Culture - Final No growth in 5 days. 02/21/20 10:15 Blood - Blood Aerobic Blood Culture - Final No growth in 5 days. 02/21/20 10:15 Blood - Blood Anaerobic Blood Culture - Final No growth in 5 days. Medications List Reviewed: Yes Assessment & Plan - Problems (Diagnosis) (1) Free intraperitoneal air Current Visit: Yes Status: Acute (2) Lab test positive for detection of COVID-19 virus Current Visit: Yes Status: Acute (3) Atrial fibrillation with RVR Current Visit: Yes Status: Acute (4) HTN (hypertension) Current Visit: Yes Status: Acute - Plan PLAN: 1. Continue postoperative care per surgery 2. IV antibiotics 3. Amiodarone drip x 24hrs 4. Resume po meds in 24-48hrs 5. Monitor BP meds and labs 6. BIPAP support 7. GI/DVT prophylaxis Discharge Plan: Home Plan to discharge in: Greater than 2 days - Advance Directives Does patient have a Living Will: No Does patient have a Durable POA for Healthcare: No - Code Status/Comfort Care Code Status Assessed: Yes Code Status: Full Code Physician Review: Patient Assessed, Agree with Above Assessment and Plan Critical Care: Yes Time Spent Managing PTS Care (In Minutes): 35
[2020-02-27] MEDS ORDERED: INSULIN -REGULAR HUMAN 50 UNIT/0.5 ML ML SQ SCH (07:30)
[2020-02-27] MEDS: PANTOPRAZOLE 40 MG INJ IVP SCH (08:30)
--- NOTE | 2020-02-27 10:21 | P.PN ---
Subjective Date of Service: 02/27/20 Primary Care Provider: [facility] Chief Complaint: Shortness of breath, cough Subjective: Improving (Patient had some perioperative tachycardia, no hypotension, no acute events. Patient states he has intermittent abdominal pain, but remains tender, but improved from pre-op.) Review of Systems 10-point ROS is otherwise unremarkable Physical Examination - Vital Signs Temperature: 99.0 F Blood Pressure: 116/63 Pulse: 80 Respirations: 15 Pulse Ox (%): 94 - Physical Exam General: Alert, In no apparent distress, Cooperative HEENT: Atraumatic, Other (mucous membranes dry with home CPAP recently removed, NG in place) Neck: Supple Respiratory: Diminished Cardiovascular: No edema, Other (regular rate, irregular rhythm), Irregular heart rate/rhythm Capillary refill: <2 Seconds Gastrointestinal: Other (soft, mild appropriate TTP, mild distention, NICOLE in LLQ blood tinged. midline dressings clean and dry.) Musculoskeletal: No clubbing, No swelling, No erythema, No warmth Integumentary: No rashes Neurological: Normal speech Urinary: Rodrigez catheter - Studies Microbiology Data (last 24 hrs): 02/21/20 10:05 Blood - Blood Aerobic Blood Culture - Final No growth in 5 days. 02/21/20 10:05 Blood - Blood Anaerobic Blood Culture - Final No growth in 5 days. 02/21/20 10:15 Blood - Blood Aerobic Blood Culture - Final No growth in 5 days. 02/21/20 10:15 Blood - Blood Anaerobic Blood Culture - Final No growth in 5 days. Medications List Reviewed: Yes Assessment & Plan - Problems (Diagnosis) (1) Free intraperitoneal air Current Visit: Yes Status: Acute Plan: Patient is 69 year old man s/p Exploratory Laparotomy, Appendectomy / Washout for occult viscous perforation on 02/26/2020 - Gen / Neuro: continue IV dilaudid for pain control, patient alert, oriented, conversive - CVS: HD stable, had episode of tachycardia, now rate controlled, on IV amiodarone for new onset AFIB w/RVR during this admission - Pulm: COVID-19 postive, on CPAP, patient has good inspiratory effort, recommend incentive spirometry with goal 15cc/kg based on ideal body weight - GI: post op - serial abdominal exams, monitor NICOLE output, daily dressing changes beginning tomorrow, await bowel function, NG- 200cc - keep on LIWS, NICOLE 110 blood tinged - Renal : adequate urine output ~300cc last shift, creatinine / BUN noted - ID: continue Zosyn for intra-abdominal infection - FEN : Continue IV hydration d50.5ns @ 100cc/hr, electrolyte replacement p rotocol, may have sips of ice chips for mouth moisture only - document intake /output - Prophylaxis - hold anticoagulation, patient recieved last dose of elequis yesterday, will consider resumption of anticoagulation in AM - Endo - low dose insulin sliding scale, continue blood sugar checks - Therapy - PT / OT consult Time spent in direct patient care: 40 minutes Physician Review: Patient Assessed, Agree with Above Assessment and Plan Physician Review Additional Text: Impression: Nausea/Vomiting with abnormal CT scan showing Free air in the abdomen, source is unknown New onset Atrial fibrillation with RVR, now NSR HTN Hypothyroidism COVID 19 with viral bilateral pneumonia Plan: DC order has been cancelled. Cased discussed with Radiology concerning CT findings. Etiology of free air unknown but he does have a lot of diverticulosis. Case discussed with Surgery. Will keep NPO. Start Zosyn. Will need to adjust medication for IV. Will update Pulmonary and Cardiology.
[2020-02-27] MEDS: ACETAMINOPHEN 325 MG TABLET PO PRN (16:14)
--- NOTE | 2020-02-27 17:23 | PN ---
Date of Progress Note: 02/27/2020 Mr. Franco yesterday underwent abdominal surgery, was found to have a central pelvic abscess, but no perforation. His Eliquis has been held. He remains in atrial fibrillation, rate controlled. He is on amiodarone, diltiazem, antibiotics, losartan. He is afebrile today. No hemodynamic compromise. Echocardiogram, which was done on 02/21/2020 is normal. I agree with his present regimen. We can c ertainly switch him to p.o. amiodarone once he is able to tolerate taking p.o. medication. Continue present regimen at this point. We will continue to follow. ADITYA/JESUS Voice ID: [id number] Report ID: [id number]
[2020-02-28] MEDS: PIPER/TAZO/NS 3.375gm 3.375 GM/100 ML BAG IVPB SCH ×3 (00:17→17:05)
[2020-02-28] MEDS: ACETAMINOPHEN 325 MG TABLET PO PRN ×2 (00:33→16:18)
[2020-02-28] MEDS: HYDROMORPHONE HCL 1 MG/ML INJ IV PRN ×8 (03:33→21:58)
[2020-02-28 05:45] LABS: Absolute Lymphocytes (CBC) 0.5 K/uL (0.7-4.9); Basophils % 0.1 % (0-1.3); Hematocrit 37.3 % (39.6-49.0); Lymphocytes % 4.6 % (15.3-44.8); MPV 8.3 fL (7.6-11.3); RBC Red Blood Cell Count 4.02 M/uL (4.33-5.43)
[2020-02-28 05:50] LABS: Magnesium 2.3 mg/dL (1.8-2.4); Phosphorus 2.3 mg/dL (2.5-4.9); Potassium 3.5 mmol/L (3.5-5.1)
[2020-02-28] MEDS: INSULIN -REGULAR HUMAN 50 UNIT/0.5 ML ML SQ SCH ×4 (06:00→18:00)
[2020-02-28] MEDS ORDERED: POTASSIUM PHOS IN 0.9 % NACL 15 MMOL/250 ML BAG IV ONE (06:31)
[2020-02-28 06:56] LABS: Blood Morphology Comment NOT SEEN (NOT SEEN); Platelet Estimate ADEQ; Toxic Granulation 1+
[2020-02-28] MEDS ORDERED: WATER FOR INJ,STERILE 10 ML ONE (07:46)
[2020-02-28] MEDS: PANTOPRAZOLE 40 MG INJ IVP SCH (08:13)
[2020-02-28] MEDS: HEPARIN 5000 UNIT/ML 1 ML VIAL SQ SCH (09:00)
[2020-02-28] MEDS: D5.45NS W/KCL 20MEQ 1,000 ML IV SCH ×2 (09:09→21:59)
[2020-02-28] MEDS ORDERED: ERTAPENEM SODIUM 1 GM VIAL IVPB ONE (11:08)
--- NOTE | 2020-02-28 11:36 | P.PN ---
Subjective Date of Service: 02/28/20 Primary Care Provider: [facility] Chief Complaint: Shortness of breath, cough Subjective: No new changes (Patient feels same as yesterday, maybe more fatigue, abdominal pain is stable, only pain with coughing.) Physical Examination - Vital Signs Temperature: 100.6 F Blood Pressure: 125/82 Pulse: 113 Respirations: 10 Pulse Ox (%): 96 - Physical Exam General: Alert, In no apparent distress, Cooperative HEENT: Mucous membr. moist/pink Neck: Supple Respiratory: Diminished Cardiovascular: Other (tachycardia, a-fib on monitor) Capillary refill: <2 Seconds Gastrointestinal: Other (soft, mild appropriate global TTP, minimal distention, NICOLE serosanguanous, NG tube in place. incision clean and dry, no drainage, no bleeding, dressings removed) Musculoskeletal: No clubbing, No swelling Integumentary: No rashes, No breakdown Neurological: Normal speech Urinary: Rodrigez catheter - Studies Medications List Reviewed: Yes Assessment And Plan - Current Problems (Diagnosis) (1) Free intraperitoneal air Current Visit: Yes Status: Acute Plan: Patient is 69 year old man s/p Exploratory Laparotomy, Appendectomy / Washout for occult viscous perforation on 02/26/2020 - Gen / Neuro: continue IV dilaudid for pain control, patient alert, oriented, conversive - CVS: HD stable, has increased tachycardia, on IV amiodarone for new onset AFIB w/RVR during this admission, recommend starting heparin weight based protocol with intermediate dosing, check hemoglobin Q8 while on anticoagulation - Pulm: COVID-19 postive, on CPAP, patient has good inspiratory effort, recommend incentive spirometry with goal 15cc/kg based on ideal body weight - GI: post op - serial abdominal exams, monitor NICOLE output, daily dressing changes daily, await bowel function, NG-dark - keep on LIWS, NICOLE serosang - Renal : adequate urine output, creatinine / BUN noted - ID: continue Zosyn for intra-abdominal infection, recommend single dose of invanz for intra-abdominal infection - FEN : Continue IV hydration d50.5ns @ 100cc/hr, electrolyte replacement protocol, may have sips of ice chips for mouth moisture only - document intake /output - Prophylaxis - start anticoagulation - intermediate dosing, patient received last dose of elequis 02-26-20, acid suppression recommended - Endo - low dose insulin sliding scale, continue blood sugar checks - Therapy - PT / OT consult Time spent in direct patient care: 40 minutes Physician Review: Patient Assessed, Agree with Above Assessment and Plan Physician Review Additional Text: Impression: Nausea/Vomiting with abnormal CT scan showing Free air in the abdomen, source is unknown New onset Atrial fibrillation with RVR, now NSR HTN Hypothyroidism COVID 19 with viral bilateral pneumonia Plan: DC order has been cancelled. Cased discussed with Radiology concerning CT findings. Etiology of free air unknown but he does have a lot of diverticulosis. Case discussed with Surgery. Will keep NPO. Start Zosyn. Will need to adjust medication for IV. Will update Pulmonary and Cardiology.
[2020-02-28 12:03] LABS: Hematocrit 40.4 % (39.6-49.0)
[2020-02-28 12:07] LABS: Protime INR 1.32
[2020-02-28] MEDS: HEPARIN/D5W 25,000 UNIT/500 ML BAG IV SCH (12:14)
[2020-02-28] MEDS ORDERED: ERTAPENEM NA 1 GM in NA CHLORIDE 0.9% 100 ML IVPB ONE (12:30)
--- NOTE | 2020-02-28 14:28 | P.PN ---
Subjective Date of Service: 02/28/20 Primary Care Provider: [facility] Chief Complaint: Shortness of breath, cough Subjective: Other (NG tube in place. Pain still present to the abdomen.) Physical Examination - Vital Signs Temperature: 100.6 F Blood Pressure: 133/84 Pulse: 118 Respirations: 20 Pulse Ox (%): 97 - Physical Exam General: Alert HEENT: Atraumatic Neck: Supple Respiratory: Clear to auscultation bilaterally, Normal air movement Cardiovascular: Abnormal pulses (Sinus tachycardia) Gastrointestinal: Hypoactive, Other (Postoperative changes noted) Neurological: Normal speech, Normal strength at 5/5 x4 extr, Normal tone, Normal affect - Studies Medications List Reviewed: Yes Assessment & Plan Discharge Plan: Home Plan to discharge in: Greater than 2 days Physician Review Additional Text: Impression: Nausea/Vomiting with abnormal CT scan showing pneumoperitoneum, source is unknown status post exploratory laparotomy and appendectomy New onset Atrial fibrillation with RVR, now NSR HTN Hypothyroidism COVID 19 with viral bilateral pneumonia Hematuria Plan: Nausea/Vomiting with abnormal CT scan showing pneumoperitoneum, source is unknown status post exploratory laparotomy and appendectomy: Spoke with surgery. Patient has NG tube in place. Continue NPO. Will continue monitor the patient closely. Patient remains on IV Zosyn and IV fluids. Surgery recommends to give 1 dose of IV InVanz. Will start heparin drip for anti coagulation therapy of atrial fibrillation. This was discussed in detail with surgery and Cardiology. Will need to monitor hemoglobin closely. Medications adjusted. No source of pneumoperitoneum. Encourage ambulation if possible. Patient remains in ICU. Will continue monitor closely. No more hematuria and identified. New onset Atrial fibrillation with RVR, now NSR: Case discussed with surgery and Cardiology. Will start anti coagulation therapy. Continue with Amiodarone. HTN: Continue with IV medication. Hypothyroidism: Continue with IV medication. COVID 19 with viral bilateral pneumonia: Wean off oxygen. Hematuria: No further hematuria noted. Will start heparin drip will need to monitor this closely. Time Spent Managing Pts Care (In Minutes): 55
[2020-02-28] MEDS ORDERED: METOPROLOL TARTRATE 5 MG/5 ML INJ IV PRN ×2 (16:15→16:16)
[2020-02-29] MEDS: HYDROMORPHONE HCL 1 MG/ML INJ IV PRN ×5 (00:20→22:00)
[2020-02-29] MEDS: HEPARIN/D5W 25,000 UNIT/500 ML BAG IV SCH ×2 (00:21→12:57)
[2020-02-29] MEDS: PIPER/TAZO/NS 3.375gm 3.375 GM/100 ML BAG IVPB SCH ×3 (00:21→16:20)
[2020-02-29] MEDS: ACETAMINOPHEN 325 MG TABLET PO PRN (04:09)
[2020-02-29] MEDS: LEVOTHYROXINE SODIUM 100 MCG VIAL IV SCH (05:16)
[2020-02-29 05:39] LABS: Absolute Lymphocytes (CBC) 0.6 K/uL (0.7-4.9); Basophils % 0.3 % (0-1.3); Lymphocytes % 5.2 % (15.3-44.8); MPV 8.2 fL (7.6-11.3)
[2020-02-29 05:40] LABS: Magnesium 2.1 mg/dL (1.8-2.4); Phosphorus 2.3 mg/dL (2.5-4.9); Potassium 3.7 mmol/L (3.5-5.1)
[2020-02-29] MEDS ORDERED: POTASSIUM PHOS IN 0.9 % NACL 15 MMOL/250 ML BAG IV ONE (05:55)
[2020-02-29] MEDS: INSULIN -REGULAR HUMAN 50 UNIT/0.5 ML ML SQ SCH ×5 (06:00→23:19)
[2020-02-29] MEDS: PANTOPRAZOLE 40 MG INJ IVP SCH (08:47)
[2020-02-29] MEDS: AMIODARONE HCL 200 MG TAB PO SCH (09:00)
[2020-02-29] MEDS: D5.45NS W/KCL 20MEQ 1,000 ML IV SCH ×2 (12:00→19:36)
--- NOTE | 2020-02-29 13:45 | P.PN ---
Subjective Date of Service: 02/29/20 Primary Care Provider: [facility] Chief Complaint: Shortness of breath, cough Subjective: Improving, Doing well, Other (Still no passage of gas. Abdominal pain stable.) Physical Examination - Vital Signs Temperature: 99.3 F Blood Pressure: 129/85 Pulse: 121 Respirations: 16 Pulse Ox (%): 96 - Physical Exam General: Alert, Oriented x3, Cooperative HEENT: Atraumatic Neck: Supple Respiratory: Clear to auscultation bilaterally, Normal air movement Cardiovascular: Irregular heart rate/rhythm (AFib rate slightly elevated especially when with pain) Gastrointestinal: Other (Postop changes noted) Neurological: Normal speech, Normal strength at 5/5 x4 extr, Normal tone, Normal affect - Studies Medications List Reviewed: Yes Assessment & Plan Discharge Plan: Home Plan to discharge in: Greater than 2 days Physician Review Additional Text: Impression: Nausea/Vomiting with abnormal CT scan showing pneumoperitoneum, source is unknown status post exploratory laparotomy and appendectomy New onset Atrial fibrillation with RVR, now NSR HTN Hypothyroidism COVID 19 with viral bilateral pneumonia Hematuria Plan: Nausea/Vomiting with abnormal CT scan showing pneumoperitoneum, source is unknown status post exploratory laparotomy and appendectomy: Spoke with surgery yesterday on adjusting antibiotic therapy and fluids. Also adjusted heparin. Heparin drip ordered for coverage of atrial fibrillation. This was in detail with surgery and pharmacy. Continue to monitor closely. Patient may have ileus. Will discuss further with surgery. New onset Atrial fibrillation with RVR, now NSR: Case discussed with surgery and Cardiology. Patient now on heparin drip. Hemoglobin stable. Continue with Amiodarone. Cardizem has been discontinued. Metoprolol IV to be given as needed. HTN: Continue with IV medication. Hypothyroidism: Continue with IV medication. COVID 19 with viral bilateral pneumonia: Wean off oxygen. Hematuria: No further hematuria noted. On heparin drip. Hemoglobin stable. Time Spent Managing Pts Care (In Minutes): 55
--- NOTE | 2020-02-29 15:35 | P.PN ---
Subjective Date of Service: 02/29/20 Primary Care Provider: [facility] Chief Complaint: Shortness of breath, cough Subjective: Improving (Patient is intermittently improving and converting from a-fib w rvr to sinus. He was started on anticoaulation @ therapuetic level yes terday. He states he feels much better. passing minimal gas. no BM. minimal appetite.) Physical Examination - Vital Signs Temperature: 99.3 F Blood Pressure: 138/98 Pulse: 110 Respirations: 16 Pulse Ox (%): 98 - Physical Exam General: Alert, In no apparent distress, Cooperative HEENT: Mucous membr. moist/pink Neck: Supple Respiratory: Diminished, Other (IS ~1500cc) Cardiovascular: Regular rate/rhythm (during my exam) Gastrointestinal: Other (soft, mild appropriate TTP, mild distention, NICOLE serosanguanous, incision has minimal serosang DC on dressings. ) Musculoskeletal: No swelling Neurological: Normal speech - Studies Medications List Reviewed: Yes Assessment And Plan - Current Problems (Diagnosis) (1) Free intraperitoneal air Current Visit: Yes Status: Acute Plan: Patient is 69 year old man s/p Exploratory Laparotomy, Appendectomy / Washout for occult viscous perforation on 02/26/2020 - Gen / Neuro: continue IV dilaudid for pain control, patient alert, oriented, conversive - CVS: HD stable, has increased tachycardia, on IV amiodarone and heparin ggt for AFIB w/RVR during this admission, recommend starting heparin weight based protocol with intermediate dosing goal PTT 40-60, check hemoglobin Q8 while on anticoagulation for first 24 hours. - Pulm: COVID-19 postive, on CPAP, patient has good inspiratory effort, recommend incentive spirometry with goal 15cc/kg based on ideal body weight, currently @ 1500cc - GI: post op - serial abdominal exams, monitor NICOLE output, daily dressing changes daily, await bowel function, NG-dark - on LIWS - will start 6 hour clamp trial and if passes will DC NG and start sips of clears, NICOLE serosang - Renal : adequate urine output, creatinine / BUN noted, DC penny - ID: continue Zosyn for intra-abdominal infection. - FEN : Continue IV hydration d50.5ns @ 100cc/hr, electrolyte replacement protocol, may have sips of ice chips for mouth moisture only will possibly transition to PO clears- document intake /output - Prophylaxis - cont anticoagulation - intermediate dosing, patient received last dose of elequis 02-26-20, acid suppression recommended - Endo - low dose insulin sliding scale, continue blood sugar checks - Therapy - PT / OT consult Time spent in direct patient care: 40 minutes Physician Review: Patient Assessed, Agree with Above Assessment and Plan Physician Review Additional Text: Impression: Nausea/Vomiting with abnormal CT scan showing pneumoperitoneum, source is unknown status post exploratory laparotomy and appendectomy New onset Atrial fibrillation with RVR, now NSR HTN Hypothyroidism COVID 19 with viral bilateral pneumonia Hematuria Plan: Nausea/Vomiting with abnormal CT scan showing pneumoperitoneum, source is unknown status post exploratory laparotomy and appendectomy: Spoke with surgery yesterday on adjusting antibiotic therapy and fluids. Also adjusted heparin. Heparin drip ordered for coverage of atrial fibrillation. This was in detail with surgery and pharmacy. Continue to monitor closely. Patient may have ileus. Will discuss further with surgery. New onset Atrial fibrillation with RVR, now NSR: Case discussed with surgery and Cardiology. Patient now on heparin drip. Hemoglobin stable. Continue with Amiodarone. Cardizem has been discontinued. Metoprolol IV to be given as needed. HTN: Continue with IV medication. Hypothyroidism: Continue with IV medication. COVID 19 with viral bilateral pneumonia: Wean off oxygen. Hematuria: No further hematuria noted. On heparin drip. Hemoglobin stable.
[2020-03-01] MEDS: ACETAMINOPHEN 325 MG TABLET PO PRN (00:05)
[2020-03-01] MEDS: PIPER/TAZO/NS 3.375gm 3.375 GM/100 ML BAG IVPB SCH ×3 (00:05→16:50)
[2020-03-01] MEDS: HEPARIN/D5W 25,000 UNIT/500 ML BAG IV SCH ×2 (01:39→13:45)
[2020-03-01 01:55] LABS: Urine Appearance CLEAR; Urine Bilirubin NEGATIVE (NEG); Urine Blood NEGATIVE (NEG); Urine Color YELLOW; Urine Glucose NEGATIVE (NEG); Urine Protein NEGATIVE (NEG); Urine Specific Gravity <=1.005 (1.005-1.030); Urine Urobilinogen 0.2 mg/dL (0.2-1.0); Urine pH 6.5 (5.0-7.0)
[2020-03-01 01:58] LABS: Urine Microscopic Reflex NO UMIC
[2020-03-01 04:52] LABS: Absolute Lymphocytes (CBC) 0.9 K/uL (0.7-4.9); Basophils % 0.3 % (0-1.3); Hematocrit 38.3 % (39.6-49.0); Lymphocytes % 10.2 % (15.3-44.8); MPV 7.6 fL (7.6-11.3); RBC Red Blood Cell Count 4.13 M/uL (4.33-5.43)
[2020-03-01 05:05] LABS: BUN Blood Urea Nitrogen 6 mg/dL (7-18); Bicarbonate 25 mmol/L (21-32); Glucose Level 127 mg/dL (74-106); Magnesium 2.1 mg/dL (1.8-2.4); Phosphorus 2.6 mg/dL (2.5-4.9); Potassium 3.4 mmol/L (3.5-5.1); Sodium Level 138 mmol/L (136-145)
[2020-03-01] MEDS: HYDROCODONE/APAP 5/325 MG TAB PO PRN ×2 (05:29→20:59)
[2020-03-01] MEDS: LEVOTHYROXINE SOD 0.112 MG TAB PO SCH (05:29)
[2020-03-01] MEDS: LEVOTHYROXINE SODIUM 100 MCG VIAL IV SCH (05:29)
[2020-03-01] MEDS: INSULIN -REGULAR HUMAN 50 UNIT/0.5 ML ML SQ SCH ×3 (05:49→18:00)
[2020-03-01] MEDS ORDERED: POTASSIUM 25 MEQ EFFERV TAB PO ONE (06:01)
[2020-03-01] MEDS: PANTOPRAZOLE 40 MG INJ IVP SCH (08:41)
[2020-03-01] MEDS: D5.45NS W/KCL 20MEQ 1,000 ML IV SCH ×2 (08:42→21:00)
--- NOTE | 2020-03-01 08:56 | P.PN ---
Subjective Date of Service: 03/01/20 Primary Care Provider: [facility] Chief Complaint: Shortness of breath, cough Subjective: Improving (Patient is feeling much better. tolerated clamp trial, passing more gas, pain improving, continues to have intermittent a-fib / RVR, s itting up in chair.) Physical Examination - Vital Signs Temperature: 98.2 F Blood Pressure: 123/88 Pulse: 140 Respirations: 13 Pulse Ox (%): 98 - Physical Exam General: Alert, In no apparent distress, Cooperative HEENT: Mucous membr. moist/pink Neck: Supple Respiratory: Diminished, Other (IS ~1500cc) Cardiovascular: Regular rate/rhythm (currently in sinus) Capillary refill: <2 Seconds Gastrointestinal: Other (soft, mild appropriate TTP, mild distention, NICOLE serosanguanous, incision clean and dry, mello in place.) Integumentary: No rashes, No breakdown Neurological: Normal speech - Studies Medications List Reviewed: Yes Assessment And Plan - Current Problems (Diagnosis) (1) Free intraperitoneal air Current Visit: Yes Status: Acute Plan: Patient is 69 year old man s/p Exploratory Laparotomy, Appendectomy / Washout for occult viscous perforation on 02/26/2020 - Gen / Neuro: continue IV dilaudid for pain control, patient alert, oriented, conversive, transition to PO norco - CVS: HD stable, has intermediate tachycardia, on IV amiodarone and heparin ggt for AFIB w/RVR during this admission, recommend continue heparin weight based protocol - Pulm: COVID-19 postive, on CPAP, patient has good inspiratory effort, recommend incentive spirometry with goal 15cc/kg based on ideal body weight, currently @ 1500cc - GI: post op - serial abdominal exams, monitor NICOLE output, daily dressing changes daily, NGT DC and start sips of clears, NICOLE serosang - Renal : adequate urine output, creatinine / BUN noted, Rodrigez out - ID: continue Zosyn for intra-abdominal infection. - FEN : Continue IV hydration d50.5ns @ 100cc/hr, electrolyte replacement protocol, may have transition to PO clears- document intake /output - Prophylaxis - cont anticoagulation - intermediate dosing, patient received last dose of elequis 02-26-20, acid suppression recommended - Endo - low dose insulin sliding scale, continue blood sugar checks - Therapy - PT / OT consult Time spent in direct patient care: 40 minutes Physician Review: Patient Assessed, Agree with Above Assessment and Plan Physician Review Additional Text: Impression: Nausea/Vomiting with abnormal CT scan showing pneumoperitoneum, source is unknown status post exploratory laparotomy and appendectomy New onset Atrial fibrillation with RVR, now NSR HTN Hypothyroidism COVID 19 with viral bilateral pneumonia Hematuria Plan: Nausea/Vomiting with abnormal CT scan showing pneumoperitoneum, source is unknown status post exploratory laparotomy and appendectomy: Spoke with surgery yesterday on adjusting antibiotic therapy and fluids. Also adjusted heparin. Heparin drip ordered for coverage of atrial fibrillation. This was in detail with surgery and pharmacy. Continue to monitor closely. Patient may have ileus. Will discuss further with surgery. New onset Atrial fibrillation with RVR, now NSR: Case discussed with surgery and Cardiology. Patient now on heparin drip. Hemoglobin stable. Continue with Amiodarone. Cardizem has been discontinued. Metoprolol IV to be given as needed. HTN: Continue with IV medication. Hypothyroidism: Continue with IV medication. COVID 19 with viral bilateral pneumonia: Wean off oxygen. Hematuria: No further hematuria noted. On heparin drip. Hemoglobin stable.
[2020-03-01] MEDS ORDERED: TRAMADOL HCL 50 MG TAB PO PRN (11:13)
--- NOTE | 2020-03-01 11:31 | P.PN ---
Subjective Date of Service: 03/01/20 Primary Care Provider: [facility] Chief Complaint: Shortness of breath, cough Subjective: Improving, Doing well, Other (Patient passing gas. Abdominal pain improved.) Physical Examination - Vital Signs Temperature: 98.2 F Blood Pressure: 123/77 Pulse: 69 Respirations: 13 Pulse Ox (%): 99 - Physical Exam General: Alert, Cooperative HEENT: Atraumatic Neck: Supple Respiratory: Clear to auscultation bilaterally Cardiovascular: Irregular heart rate/rhythm (AFib rate controlled) Gastrointestinal: Soft and benign, Other (Postoperative changes noted) Neurological: Normal speech, Normal strength at 5/5 x4 extr, Normal tone, Normal affect - Studies Medications List Reviewed: Yes Assessment & Plan Discharge Plan: Home Plan to discharge in: Greater than 2 days Physician Review Additional Text: Impression: Nausea/Vomiting with abnormal CT scan showing pneumoperitoneum, source is unknown status post exploratory laparotomy and appendectomy New onset Atrial fibrillation with RVR, now NSR HTN Hypothyroidism COVID 19 with viral bilateral pneumonia Hematuria Plan: Nausea/Vomiting with abnormal CT scan showing pneumoperitoneum, source is unknown status post exploratory laparotomy and appendectomy: Patient continues to improve. Case discussed with surgery. Surgery plans to discontinue NG tube. He will start sips of clear fluid. If tolerable he will advance slowly. Continue to monitor urine output. Surgery was okay in adjusting heparin to normal dose. Will start transitioning to oral medication. Continue to monitor closely. Anticipate improvement over the next 3 days. New onset Atrial fibrillation with RVR, now NSR: Case discussed with surgery and Cardiology. Surgery was okay in adjusting heparin drip. Hemoglobin stable. Continue with Amiodarone. Will transition to oral amiodarone Metoprolol IV to be given as needed. HTN: Continue with IV medication. Hypothyroidism: Transition to oral medication. COVID 19 with viral bilateral pneumonia: Wean off oxygen. Hematuria: No further hematuria noted. On heparin drip. Hemoglobin stable. Time Spent Managing Pts Care (In Minutes): 55
[2020-03-01] MEDS: GUAIFENESIN/CODEINE 5ML UCUP PO PRN ×2 (13:45→20:59)
--- NOTE | 2020-03-01 23:10 | RAD REPORT ---
EXAM DESCRIPTION: RAD - Chest Single View - 03/01/2020 11:02 pm CLINICAL HISTORY: S/P PICC insertion COMPARISON: Chest Single View dated 02/26/2020; Chest Single View dated 02/21/2020Chest Single View da deirdre 02/26/2020; Chest Single View dated 02/21/2020 FINDINGS: Portable chest was obtained following placement of a right upper extremity PICC line. The catheter tip projects over the SVC.
[2020-03-02] MEDS: PIPER/TAZO/NS 3.375gm 3.375 GM/100 ML BAG IVPB SCH ×3 (00:56→17:01)
[2020-03-02] MEDS: D5.45NS W/KCL 20MEQ 1,000 ML IV SCH ×2 (04:15→11:58)
[2020-03-02] MEDS: HEPARIN/D5W 25,000 UNIT/500 ML BAG IV SCH ×2 (04:28→17:34)
[2020-03-02 05:19] LABS: BUN Blood Urea Nitrogen 5 mg/dL (7-18); Bicarbonate 29 mmol/L (21-32); Glucose Level 105 mg/dL (74-106); Potassium 3.5 mmol/L (3.5-5.1); Sodium Level 141 mmol/L (136-145)
[2020-03-02 05:20] LABS: Phosphorus 2.8 mg/dL (2.5-4.9)
[2020-03-02] MEDS: INSULIN -REGULAR HUMAN 50 UNIT/0.5 ML ML SQ SCH ×4 (06:00→17:35)
[2020-03-02] MEDS: LEVOTHYROXINE SOD 0.112 MG TAB PO SCH (06:01)
[2020-03-02 06:37] LABS: Basophils % 0.5 % (0-1.3); Hematocrit 35.1 % (39.6-49.0); Lymphocytes % 13.1 % (15.3-44.8); RBC Red Blood Cell Count 3.78 M/uL (4.33-5.43)
[2020-03-02] MEDS: PANTOPRAZOLE 40 MG INJ IVP SCH (08:07)
[2020-03-02] MEDS ORDERED: POTASSIUM 25 MEQ EFFERV TAB PO ONE (09:00)
[2020-03-02] MEDS: AMIODARONE HCL 200 MG TAB PO SCH ×2 (12:57→20:50)
--- NOTE | 2020-03-02 13:13 | P.PN ---
Subjective Date of Service: 03/02/20 Primary Care Provider: [facility] Chief Complaint: Shortness of breath, cough Subjective: Improving (Patient tolerated clears well, but minimal amount, continues to pass gas, no BM, abdominal pain much improved, minimal use of pain meds. continues to have a-fib, on anticoagulation, and rate controlled the majority of the time , no complaints.) Physical Examination - Vital Signs Temperature: 97.6 F Blood Pressure: 148/88 Pulse: 57 Respirations: 11 Pulse Ox (%): 95 - Physical Exam General: Alert, In no apparent distress, Cooperative HEENT: Mucous membr. moist/pink Neck: Supple Respiratory: Clear to auscultation bilaterally, Normal air movement Cardiovascular: No edema, Irregular heart rate/rhythm Gastrointestinal: Other (soft, minimal TTP, ND, NICOLE serosanguanous, incision clean and dry, no rebound, exam much improved from prior. + bowel sounds) Musculoskeletal: No clubbing, No swelling, No erythema Integumentary: No rashes Neurological: Normal speech - Studies Medications List Reviewed: Yes Assessment And Plan - Current Problems (Diagnosis) (1) Free intraperitoneal air Current Visit: Yes Status: Acute Plan: Patient is 69 year old man s/p Exploratory Laparotomy, Appendectomy / Washout for occult viscous perforation on 02/26/2020 - Gen / Neuro: pain management transition to PO norco - CVS: HD stable, has intermediate tachycardia, on IV amiodarone - transition to PO, and heparin ggt for AFIB w/RVR during this admission, recommend continue heparin weight based protocol until patient tolerating diet and having more function. - Pulm: COVID-19 postive, on CPAP, patient has good inspiratory effort, recommend incentive spirometry with goal 15cc/kg based on ideal body weight, currently @ 1700cc - GI: post op - serial abdominal exams, monitor NICOLE output, daily dressing changes daily, NICOLE serosang - Renal : adequate urine output, creatinine / BUN noted, Rodrigez out - ID: continue Zosyn for intra-abdominal infection, will likely wean off soon. - FEN : Continue IV hydration d50.5ns @ 100cc/hr, electrolyte replacement protocol, transition to PO full liquid diet, start TPN as patient has not meet nutritional goals, will monitor, document intake /output - Prophylaxis - cont anticoagulation - intermediate dosing, patient received l ast dose of elequis 02-26-20, acid suppression recommended - Endo - low dose insulin sliding scale, continue blood sugar checks - Therapy - PT / OT consult Time spent in direct patient care: 40 minutes Physician Review: Patient Assessed, Agree with Above Assessment and Plan Physician Review Additional Text: Impression: Nausea/Vomiting with abnormal CT scan showing pneumoperitoneum, source is unknown status post exploratory laparotomy and appendectomy New onset Atrial fibrillation with RVR, now NSR HTN Hypothyroidism COVID 19 with viral bilateral pneumonia Hematuria Plan: Nausea/Vomiting with abnormal CT scan showing pneumoperitoneum, source is unknown status post exploratory laparotomy and appendectomy: Patient continues to improve. Case discussed with surgery. Surgery plans to discontinue NG tube. He will start sips of clear fluid. If tolerable he will advance slowly. Continue to monitor urine output. Surgery was okay in adjusting heparin to normal dose. Will start transitioning to oral medication. Continue to monitor closely. Anticipate improvement over the next 3 days. New onset Atrial fibrillation with RVR, now NSR: Case discussed with surgery and Cardiology. Surgery was okay in adjusting heparin drip. Hemoglobin stable. Continue with Amiodarone. Will transition to oral amiodarone Metoprolol IV to be given as needed. HTN: Continue with IV medication. Hypothyroidism: Transition to oral medication. COVID 19 with viral bilateral pneumonia: Wean off oxygen. Hematuria: No further hematuria noted. On heparin drip. Hemoglobin stable.
[2020-03-02] MEDS: GUAIFENESIN/CODEINE 5ML UCUP PO PRN ×2 (14:42→23:04)
[2020-03-02] MEDS ORDERED: [UNRECOGNIZED DRUG - NUTRITION] IV SCH ×4 (17:00)
[2020-03-02] MEDS: AA 5%/D20W/ELECTROLYTES-TPN 2,000 ML, Lipids 20% 250 ML with MULTIVITAMINS INJ 10 ML IV SCH ×3 (17:33)
[2020-03-02] MEDS: HYDROCODONE/APAP 5/325 MG TAB PO PRN ×2 (17:49→23:04)
[2020-03-03] MEDS: PIPER/TAZO/NS 3.375gm 3.375 GM/100 ML BAG IVPB SCH ×2 (01:05→09:00)
[2020-03-03] MEDS: HEPARIN/D5W 25,000 UNIT/500 ML BAG IV SCH ×2 (04:58→20:05)
[2020-03-03 05:09] VITALS: BMI 30.4
[2020-03-03 05:09] LABS: Absolute Lymphocytes (CBC) 0.9 K/uL (0.7-4.9); Basophils % 0.6 % (0-1.3); Hematocrit 34.9 % (39.6-49.0); Lymphocytes % 13.6 % (15.3-44.8); MPV 7.6 fL (7.6-11.3); RBC Red Blood Cell Count 3.79 M/uL (4.33-5.43)
[2020-03-03] MEDS: LEVOTHYROXINE SOD 0.112 MG TAB PO SCH (05:16)
[2020-03-03] MEDS: INSULIN -REGULAR HUMAN 50 UNIT/0.5 ML ML SQ SCH ×4 (05:16→18:00)
[2020-03-03 05:23] LABS: BUN Blood Urea Nitrogen 6 mg/dL (7-18); Bicarbonate 30 mmol/L (21-32); Glucose Level 110 mg/dL (74-106); Magnesium 2.1 mg/dL (1.8-2.4); Phosphorus 3.8 mg/dL (2.5-4.9); Potassium 3.4 mmol/L (3.5-5.1); Sodium Level 139 mmol/L (136-145)
[2020-03-03] MEDS ORDERED: POTASSIUM CL SA 10 MEQ TAB PO ONE (07:28)
[2020-03-03] MEDS: PANTOPRAZOLE 40 MG INJ IVP SCH (09:15)
[2020-03-03] MEDS: AMIODARONE HCL 200 MG TAB PO SCH ×2 (09:15→20:04)
--- NOTE | 2020-03-03 10:49 | P.PN ---
Subjective Date of Service: 03/03/20 Primary Care Provider: [facility] Chief Complaint: Shortness of breath, cough Subjective: Improving (No acute events overnight. Patient is NPO while on TPN. Pain is controlled.) Physical Examination - Vital Signs Temperature: 97.1 F Blood Pressure: 150/81 Pulse: 60 Respirations: 14 Pulse Ox (%): 98 - Physical Exam General: Alert, In no apparent distress, Cooperative HEENT: Atraumatic, Normocephalic Neck: Supple Respiratory: Clear to auscultation bilaterally, Normal air movement Cardiovascular: No edema, Normal pulses, Regular rate/rhythm, Normal S1 S2 Gastrointestinal: Normal bowel sounds, Other (Abdomen slightly distended and tense. Bowel sounds are present. NICOLE drain in place) Musculoskeletal: No clubbing, No swelling, No contractures, No erythema, No tenderness, No warmth Integumentary: No rashes, No breakdown, No significant lesion, No t enderness/swelling, No erythema, No warmth, No cyanosis Neurological: Normal speech, Sensation intact, Normal affect - Studies Medications List Reviewed: Yes Assessment & Plan - Problems (Diagnosis) (1) S/P appendectomy Current Visit: Yes Status: Acute (2) Atrial fibrillation with RVR Current Visit: Yes Status: Acute (3) Free intraperitoneal air Current Visit: Yes Status: Acute (4) HTN (hypertension) Current Visit: Yes Status: Acute (5) Lab test positive for detection of COVID-19 virus Current Visit: Yes Status: Acute Physician Review: Patient Assessed, Agree with Above Assessment and Plan Physician Review Additional Text: Impression: Patient is a 69 year old male who presented to the hospital with shortness of breath and exhaustion. He was found to have COVID 19. Hospital course complicated by rapid atrial fibrillation which was managed in the ICU. He also complained of abdominal discomfort and was found to have free intraperitoneal air by CT A/P. Surgery performed ex-lap and appendectomy. He is currently on TPN Nausea/Vomiting with abnormal CT scan showing pneumoperitoneum, source is unknown status post exploratory laparotomy and appendectomy New onset Atrial fibrillation with RVR, now NSR HTN Hypothyroidism COVID 19 with viral bilateral pneumonia Hematuria Plan: Continue NPO status while on TPN Continue perioperative zosyn. Will defer to Surgery on total duration of treatment PRN anti-emetics Surgery to advance to SIPS of clear as tolerated Continue amiodarone and heparin infusion for CVA prevention Will add norvasc if BP persistent elevated Continue levothyroxine Replace Potassium with KCl Continue supportive care with supplemental O2 for COVID 19, and wean off as tolerated
--- NOTE | 2020-03-03 11:07 | P.PN ---
Subjective Date of Service: 03/03/20 Primary Care Provider: [facility] Chief Complaint: Shortness of breath, cough Subjective: Improving (tolerating full liquids, passing more gas, vital signs improving, pain improved per patient. pain free @ rest.) Physical Examination - Vital Signs Temperature: 97.1 F Blood Pressure: 150/81 Pulse: 60 Respirations: 14 Pulse Ox (%): 98 - Physical Exam General: Alert, In no apparent distress, Cooperative HEENT: Mucous membr. moist/pink Respiratory: Diminished Cardiovascular: No edema, Normal pulses, Irregular heart rate/rhythm Capillary refill: <2 Seconds Gastrointestinal: Other (soft, mild appropriate TTP, ND, NICOLE serosang, incision clean and dry, normal bowel sounds) Musculoskeletal: No clubbing, No swelling Integumentary: No rashes, No breakdown Neurological: Normal speech - Studies Medications List Reviewed: Yes Assessment And Plan - Current Problems (Diagnosis) (1) Free intraperitoneal air Current Visit: Yes Status: Acute Plan: Patient is 69 year old man s/p Exploratory Laparotomy, Appendectomy / Washout for occult viscous perforation on 02/26/2020 - Gen / Neuro: pain management transition to PO norco - CVS: HD stable, has intermediate tachycardia, on po amiodarone , and heparin ggt for AFIB w/RVR during this admission, recommend continue heparin weight based protocol until patient tolerating diet and having more function. - Pulm: COVID-19 postive, on CPAP, patient has good inspiratory effort, recommend incentive spirometry with goal 15cc/kg based on ideal body weight, currently @ 1700cc - GI: post op - serial abdominal exams, daily dressing changes daily, NICOLE removed @ bedside today - Renal : adequate urine output, creatinine / BUN noted, Rodrigez out - ID: continue Zosyn for intra-abdominal infection, DC zosyn today - FEN : Continue IV hydration d50.5ns @ 100cc/hr, electrolyte replacement protocol, transition to PO soft diet, continue TPN as patient has not meet nutritional goals, will DC when PO intake adequate, will monitor, document intake /output - Prophylaxis - cont anticoagulation - intermediate dosing, patient received last dose of elequis 02-26-20, acid suppression recommended - Endo - low dose insulin sliding scale, continue blood sugar checks - Therapy - PT / OT consult Time spent in direct patient care: 40 minutes Physician Review: Patient Assessed, Agree with Above Assessment and Plan Physician Review Additional Text: Impression: Patient is a 69 year old male who presented to the hospital with shortness of breath and exhaustion. He was found to have COVID 19. Hospital course complicated by rapid atrial fibrillation which was managed in the ICU. He also complained of abdominal discomfort and was found to have free intraperitoneal air by CT A/P. Surgery performed ex-lap and appendectomy. He is currently on TPN Nausea/Vomiting with abnormal CT scan showing pneumoperitoneum, source is unknown status post exploratory laparotomy and appendectomy New onset Atrial fibrillation with RVR, now NSR HTN Hypothyroidism COVID 19 with viral bilateral pneumonia Hematuria Plan: Continue NPO status while on TPN Continue perioperative zosyn. Will defer to Surgery on total duration of treatment PRN anti-emetics Surgery to advance to SIPS of clear as tolerated Continue amiodarone and heparin infusion for CVA prevention Will add norvasc if BP persistent elevated Continue levothyroxine Replace Potassium with KCl Continue supportive care with supplemental O2 for COVID 19, and wean off as tolerated
[2020-03-03] MEDS: AA 5%/D20W/ELECTROLYTES-TPN 2,000 ML, Lipids 20% 250 ML with MULTIVITAMINS INJ 10 ML IV SCH ×3 (17:00)
[2020-03-03] MEDS ORDERED: POTASSIUM 25 MEQ EFFERV TAB PO ONE (21:00)
[2020-03-03] MEDS: GUAIFENESIN/CODEINE 5ML UCUP PO PRN (23:20)
[2020-03-04 04:14] LABS: Absolute Lymphocytes (CBC) 0.9 K/uL (0.7-4.9); Basophils % 0.6 % (0-1.3); Lymphocytes % 12.4 % (15.3-44.8); RBC Red Blood Cell Count 3.96 M/uL (4.33-5.43)
[2020-03-04 04:38] LABS: BUN Blood Urea Nitrogen 8 mg/dL (7-18); Bicarbonate 28 mmol/L (21-32); Glucose Level 203 mg/dL (74-106); Phosphorus 4.9 mg/dL (2.5-4.9); Potassium 4.1 mmol/L (3.5-5.1); Sodium Level 135 mmol/L (136-145)
[2020-03-04] MEDS: LEVOTHYROXINE SOD 0.112 MG TAB PO SCH (05:07)
[2020-03-04] MEDS: INSULIN -REGULAR HUMAN 50 UNIT/0.5 ML ML SQ SCH ×3 (05:27→11:44)
[2020-03-04] MEDS: PANTOPRAZOLE 40 MG INJ IVP SCH (08:48)
[2020-03-04] MEDS: AMIODARONE HCL 200 MG TAB PO SCH (08:49)
[2020-03-04 10:21] VITALS: O2SAT 95
--- NOTE | 2020-03-04 10:44 | P.PN ---
Subjective Date of Service: 03/04/20 Primary Care Provider: [facility] Chief Complaint: Shortness of breath, cough Subjective: Improving (Patient feels well, tolerated soft diet, having bowel movements, ambulatory) Physical Examination - Vital Signs Temperature: 95.3 F Blood Pressure: 159/96 Pulse: 68 Respirations: 18 Pulse Ox (%): 95 - Physical Exam General: Alert, In no apparent distress HEENT: Mucous membr. moist/pink Gastrointestinal: Other (soft, NT, ND, incision clean, mello in place, ) - Studies Medications List Reviewed: Yes Assessment And Plan - Current Problems (Diagnosis) (1) Free intraperitoneal air Current Visit: Yes Status: Acute Plan: Patient is 69 year old man s/p Exploratory Laparotomy, Appendectomy / Washout for occult viscous perforation on 02/26/2020 - Gen / Neuro: pain management transition to PO norco - CVS: ok to start PO anticoagulation - Pulm: COVID-19 postive, on CPAP, patient has good inspiratory effort, recommend incentive spirometry with goal 15cc/kg based on ideal body weight, currently @ 1700cc - GI: post op - daily dressing changes daily, NICOLE removed - Renal : adequate urine output, creatinine / BUN noted, Rodrigez out - ID: DC zosyn today - FEN :continue regular diet - Prophylaxis - start po anticoag - Endo - low dose insulin sliding scale, continue blood sugar checks - Therapy - PT / OT consult - ok to DC home from surgical standpoint Physician Review: Patient Assessed, Agree with Above Assessment and Plan Physician Review Additional Text: Impression: Patient is a 69 year old male who presented to the hospital with shortness of breath and exhaustion. He was found to have COVID 19. Hospital course complicated by rapid atrial fibrillation which was managed in the ICU. He also complained of abdominal discomfort and was found to have free intraperitoneal air by CT A/P. Surgery performed ex-lap and appendectomy. He is currently on TPN Nausea/Vomiting with abnormal CT scan showing pneumoperitoneum, source is unknown status post exploratory laparotomy and appendectomy New onset Atrial fibrillation with RVR, now NSR HTN Hypothyroidism COVID 19 with viral bilateral pneumonia Hematuria Plan: Continue NPO status while on TPN Continue perioperative zosyn. Will defer to Surgery on total duration of treatment PRN anti-emetics Surgery to advance to SIPS of clear as tolerated Continue amiodarone and heparin infusion for CVA prevention Will add norvasc if BP persistent elevated Continue levothyroxine Replace Potassium with KCl Continue supportive care with supplemental O2 for COVID 19, and wean off as tolerated
[2020-03-04 11:39] VITALS: BP 160/87; TEMP 96.7
--- NOTE | 2020-03-04 12:35 | P.DS ---
Admission Date: 02/22/20 Discharge Date: 03/04/20 Primary Care Provider: [facility] Disposition: ROUTINE DISCHARGE Discharge Condition: GOOD Reason for Admission: Shortness of breath, cough Consultations: Cardiology-Dr. Cuevas Surgery-Dr. Venegas Pulmonary-Dr. Hanson Procedures: ECHO: Ejection fraction 57% LEFT VENTRICULAR WALL MOTION: NORMAL. DOPPLER/COLOR FLOW: NORMAL. COMMENTS: NORMAL LEFT VENTRICULAR EJECTION FRACTION 55-60% WITH NORMAL MET[place]F. ATRIAL FIBRILLATION. CT scan: FINDINGS: Scarring and atelectasis changes are present in the posterior lung bases. Patient has patchy peripheral ground-glass opacities in the lung camacho. This is a typical COVID-19 infection pattern. No cardiomegaly or pericardial effusion. The liver, spleen and pancreas show no suspicious findings on non-contrast imaging. Gallbladder and biliary tree are also without suspicious finding. No hydronephrosis or suspicious renal mass. Multiple bilateral round low-density masses are present typical for cysts. No significant adrenal finding. Isodense renal masses and pyelonephritis cannot be excluded in the absence of IV contrast. The urinary bladder is without significant finding. Patient has a minimal hiatal hernia. There is no wall thickening or mass of the stomach. No CT finding for ulceration or gastric wall perforation. No gastric wall pneumatosis. Distal small bowel is decompressed. There are prominent distended to minimally dilated proximal and mid small bowel loops. Stranding is present adjacent to a short segment of mid small bowel. No pneumatosis. Patient has moderate left-sided diverticulosis. No diverticulitis evident. No colon wall mass, wall thickening or perforation identifiable. Patient has a moderately large volume of free intraperitoneal air. This is the correlate to the plain film finding. Source for the free air is not evident. Typical: An stomach etiologies are not evident. Small bowel is abnormal but this may be secondary. A small bowel perforation cannot be excluded ; however, the absence of fluid decreases small bowel source probability. Bilateral fat filled inguinal hernias are present. No suspicious bony findings. IMPRESSION: Moderate volume of free intraperitoneal air. Patient has little or no free fluid. Patient has extensive diverticulosis without acute diverticulitis and no obvious site of colon perforation. No gastric wall thickening or mass. No area of gastric abnormality that would suggest ulcer perforation. Several distended to mildly dilated small bowel loops are present in the mid abdomen. There is some stranding and edema in the adjacent fat. A small bowel perforation is possible but not common for this pattern. Small bowel changes are potentially secondary to the free air. Bilateral peripheral airspace infiltrate pattern typical for COVID-19 infection. Surgery: Date: 02/26/2020 Surgeon: Dr. Ej Venegas Preop diagnosis: Pneumoperitoneum Postop diagnosis: Pneumoperitoneum Procedure: Appendectomy, abdominal washout Finding: Central pelvic abscess, no visceral perforation discovered Medical Problem List: Nausea/Vomiting with abnormal CT scan showing pneumoperitoneum, status post exploratory laparotomy and appendectomy done, no visceral perforation discovered New onset Atrial fibrillation with RVR, now NSR, now on chronic anti coagulation therapy HTN Hypothyroidism COVID 19 with viral bilateral pneumonia Hematuria, resolved Brief History of Present Illness: 69-year-old male presented to the emergency room with shortness of breath. Patient had recently tested positive for COVID 19. Patient presented with shortness of breath. Patient found to have new onset atrial fibrillation with RVR. Patient was admitted for further evaluation and treatment. Hospital Course: Patient presented with shortness of breath secondary to new onset atrial fibrillation with RVR and COVID 19 infection. Patient was placed on anti coagulation therapy along with antiarrhythmic medication. Patient has done well. Patient seen by Cardiology. Echocardiogram shows normal ejection fraction. Patient initially started on IV amiodarone. This has been adjusted to oral medication. Cardiology recommends to continue with amiodarone, Cardizem, and Eliquis. Cardiology also recommends to decrease thyroid medication. Patient was to be have been discharged early in the hospitalization but the patient had significant nausea and vomiting. Patient was found to have abnormal CT scan showing pneumoperitoneum. Surgery was consulted. Surgery performed exploratory laparotomy. No visceral perforation discovered. Abdominal washout performed along with appendectomy. The patient had some hematuria post operatively. This resolved. Patient was transitioned off heparin drip to Eliquis. Patient required some TPN. This was eventually weaned off as well. At discharge concerning his atrial fibrillation, the patient will continue with amiodarone 400 mg twice daily and Eliquis 5 mg 1 pill twice daily. Concerning his surgery, the patient will continue with his current GI soft diet. Patient will need to be retested for COVID 19 in the next 2 days. This is to check to see if he still positive. Continue recommendations by surgery for postoperative care. Recommend to follow up with surgery in 1 week. Recommend a follow up with cardiology in 1-2 weeks to follow up this hospitaliz ation. Recommend to recheck CBC, BMP in 1-2 weeks. Patient recently positive for COVID 19. Chest x-ray showed no consolidation. Patient seen and evaluated by pulmonology. Viral pneumonia suspected. No need for antibiotic therapy. Patient will be given symptomatic support. Patient may continue with Mucinex 600 mg 1 pill twice daily for congestion and Tessalon Perles 1 pill 3 times a day as needed for cough. Recommend follow up with PCP in 1-2 weeks to monitor resolution. COVID education along with CDC guidelines and recommendations will be provided. Patient will need to quarantine until he test negative. Infection control will contact health department to further monitor. Recommend to recheck COVID 19 testing in the next 2 days. Patient with hypothyroidism. Thyroid level slightly abnormal. Cardiology recommended to decrease medication. Recommend to continue with levothyroxine 112 mcg daily. Recommend to recheck tsh and free T4 in 4-6 weeks to monitor and adjust medication. Patient with hypertension. Patient will continue with above recommendations. Patient will also go home on losartan 50 mg 1 pill twice daily. Recommend to monitor blood pressure daily. If blood pressure less than 110 systolic then hold medication. Recommend to maintain blood pressure less 150/80. Further adjustment can be done by his PCP or cardiology. Vital Signs/Physical Exam: Temp Pulse Resp BP Pulse Ox 96.7 F L 66 18 160/87 H 94 03/04/20 11:37 03/04/20 11:37 03/04/20 11:37 03/04/20 11:37 03/04/20 11:37 General: Alert, In no apparent distress, Oriented x3, Cooperative HEENT: Atraumatic Neck: Supple Respiratory: Clear to auscultation bilaterally Cardiovascular: Normal pulses, Regular rate/rhythm Gastrointestinal: Other (Postop changes noted, patient had bowel movement earlier, no pain) Neurological: Normal speech, Normal strength at 5/5 x4 extr, Normal tone, Normal affect Laboratory Data at Discharge: WBC 7.6 K/uL (4.3-10.9) 03/04/20 04:00 Hgb 12.5 g/dL (13.6-17.9) L 03/04/20 04:00 Hct 37.0 % (39.6-49.0) L 03/04/20 04:00 Plt Count 438 K/uL (152-406) H 03/04/20 04:00 PT 15.5 SECONDS (9.5-12.5) H 02/28/20 11:41 INR 1.32 02/28/20 11:41 APTT 54.1 SECONDS (24.3-36.9) H 03/04/20 05:25 Sodium 135 mmol/L (136-145) L 03/04/20 04:00 Potassium 4.1 mmol/L (3.5-5.1) 03/04/20 04:00 BUN 8 mg/dL (7-18) 03/04/20 04:00 Creatinine 0.82 mg/dL (0.55-1.3) 03/04/20 04:00 Glucose 203 mg/dL (74-106) H 03/04/20 04:00 Phosphorus 4.9 mg/dL (2.5-4.9) 03/04/20 04:00 Magnesium 2.0 mg/dL (1.8-2.4) 03/04/20 04:00 Total Bilirubin 0.8 mg/dL (0.2-1.0) 02/25/20 05:45 AST 32 U/L (15-37) 02/25/20 05:45 ALT 46 U/L (12-78) 02/25/20 05:45 Alkaline Phosphatase 94 U/L (45-117) 02/25/20 05:45 Troponin I 0.02 ng/mL (0.0-0.045) 02/22/20 05:03 Lipase 175 U/L (73-393) 02/21/20 10:05 Home Medications: Benzonatate [Tessalon Perle*] 100 mg PO TID PRN #15 cap 02/26/20 Famotidine [Pepcid*] 20 mg PO BID #60 tab 02/26/20 Amiodarone HCl [Cordarone*] 400 mg PO BID #120 tab 03/04/20 Apixaban [Eliquis] 5 mg PO BID #60 tablet 03/04/20 Ensure High Protein 237 ml PO BID #60 bottle 03/04/20 Levothyroxine [Synthroid*] 0.112 mg PO DAILYAC #30 tab 03/04/20 Losartan Potassium [Cozaar*] 50 mg PO BID #60 tablet 06/22/20 New Medications: Amiodarone HCl [Cordarone*] 400 mg PO BID #120 tab Losartan Potassium [Cozaar*] 50 mg PO BID #60 tablet Apixaban [Eliquis] 5 mg PO BID #60 tablet Ensure High Protein 237 ml PO BID #60 bottle Famotidine [Pepcid*] 20 mg PO BID #60 tab Levothyroxine [Synthroid*] 0.112 mg PO DAILYAC #30 tab Benzonatate [Tessalon Perle*] 100 mg PO TID PRN #15 cap PRN Reason: Cough Patient Discharge Instructions: 1. Recommend follow up with PCP in 1 week to follow up this hospitalization. 2. Patient presented with shortness of breath secondary to new onset atrial fibrillation with RVR and COVID 19 infection. Patient was placed on anti coagulation therapy along with antiarrhythmic medication. Patient has done well. Patient seen by Cardiology. Echocardiogram shows normal ejection fraction. Patient initially started on IV amiodarone. This has been adjusted to oral medication. Cardiology recommends to continue with amiodarone, Cardizem, and Eliquis. Cardiology also recommends to decrease thyroid medication. Patient was to be have been discharged early in the hospitalization but the patient had significant nausea and vomiting. Patient was found to have abnormal CT scan showing pneumoperitoneum. Surgery was consulted. Surgery performed exploratory laparotomy. No visceral perforation discovered. Abdominal washout performed along with appendectomy. The patient had some hematuria post operatively. This resolved. Patient was transitioned off heparin drip to Eliquis. Patient required some TPN. This was eventually weaned off as well. At discharge concerning his atrial fibrillation, the patient will continue with amiodarone 400 mg twice daily and Eliquis 5 mg 1 pill twice daily. Concerning his surgery, the patient will continue with his current GI soft diet. Patient will need to be retested for COVID 19 in the next 2 days. This is to check to see if he still positive. Continue recommendations by surgery for postoperative care. Recommend to follow up with surgery in 1 week. Recommend a follow up with cardiology in 1-2 weeks to follow up this hospitalization. Recommend to recheck CBC, BMP in 1-2 weeks. 3. Patient recently positive for COVID 19. Chest x-ray showed no consolidation. Patient seen and evaluated by pulmonology. Viral pneumonia suspected. No need for antibiotic therapy. Patient will be given symptomatic support. Patient may continue with Mucinex 600 mg 1 pill twice daily for congestion and Tessalon Perles 1 pill 3 times a day as needed for cough. Recommend follow up with PCP in 1-2 weeks to monitor resolution. COVID education along with CDC guidelines and recommendations will be provided. Patient will need to quarantine until he test negative. Infection control will contact health department to further monitor. Recommend to recheck COVID 19 testing in the next 2 days. 4. Patient with hypothyroidism. Thyroid level slightly abnormal. Cardiology recommended to decrease medication. Recommend to continue with levothyroxine 112 mcg daily. Recommend to recheck tsh and free T4 in 4-6 weeks to monitor and adjust medication. 5. Patient with hypertension. Patient will continue with above recommendations. Patient will also go home on losartan 50 mg 1 pill twice rashad ly. Recommend to monitor blood pressure daily. If blood pressure less than 110 systolic then hold medication. Recommend to maintain blood pressure less 150/80. Further adjustment can be done by his PCP or cardiology. Diet: AHA Activity: No lifting more than 10 lbs Time spent managing pt's care (in minutes): 55
[2020-03-04] MEDS ORDERED: ENSURE HIGH PROTEIN 237 ML CAN PO SCH (21:00)
[2020-03-04] MEDS ORDERED: APIXABAN 5 MG TABLET PO SCH (21:00)
== END 2020-03-04 15:23 | disposition home health service (06) | DRG 853 ==
LOC: ER 10:03 → 4TH 12:54 → 3RD-ICU 02-22 03:52 → OBSVTOIN 02-22 07:41 → 4TH 02-23 18:20 → 3RD-ICU 02-24 01:44 → 4TH 03-03 07:45
PROVIDERS: ADMIT Internal Medicine; ATTEND Internal Medicine
PROC: 8E0ZXY6 Isolation (ICD-10-PCS; 2020-02-22)
PROC: 0W9G00Z Drainage of Peritoneal Cavity with Drainage Device, Open Approach (ICD-10-PCS; 2020-02-26)
PROC: 0WJF0ZZ Inspection of Abdominal Wall, Open Approach (ICD-10-PCS; 2020-02-26)
PROC: 3E1M38Z Irrigation of Peritoneal Cavity using Irrigating Substance, Percutaneous Approach (ICD-10-PCS; 2020-02-26)
PROC: 3E0336Z Introduction of Nutritional Substance into Peripheral Vein, Percutaneous Approach (ICD-10-PCS; 2020-02-26)
PROC: 0DTJ0ZZ Resection of Appendix, Open Approach (ICD-10-PCS; principal; 2020-02-26 23:00)
PROC: 02HV33Z Insertion of Infusion Device into Superior Vena Cava, Percutaneous Approach (ICD-10-PCS; 2020-03-01)
DX: A41.89 Other specified sepsis (principal); U07.1 COVID-19; J12.89 Other viral pneumonia; J96.00 Acute respiratory failure, unspecified whether with hypoxia or hypercapnia; K65.1 Peritoneal abscess; I48.91 Unspecified atrial fibrillation; K37 Unspecified appendicitis; I10 Essential (primary) hypertension; E78.5 Hyperlipidemia, unspecified; E07.9 Disorder of thyroid, unspecified; Z79.899 Other long term (current) drug therapy; Z79.890 Hormone replacement therapy; E03.9 Hypothyroidism, unspecified; E66.9 Obesity, unspecified; Z68.30 Body mass index [BMI] 30.0-30.9, adult; Z79.01 Long term (current) use of anticoagulants; K66.8 Other specified disorders of peritoneum; K57.90 Diverticulosis of intestine, part unspecified, without perforation or abscess without bleeding; R00.0 Tachycardia, unspecified; R31.9 Hematuria, unspecified
CPT/HCPCS: 36415; 36569; 71045; 74018; 74176; 80048; 80053; 80076; 81003; 81015; 82550; 82553; 82728; 82947; 83605; 83690; 83735; 84100; 84132; 84145; 84436; 84439; 84443; 84481; 84484; 85014; 85018; 85025; 85049; 85379; 85384; 85610; 85730; 86140; 86850; 86900; 86901; 87040; 88304; 93005; 93306; 94760; 96372; 96374; 99285; C9113; G0378; J0282; J0330; J0360; J1170; J1335; J1650; J2370; J2405; J2543; J2550; J2704; J2710; J3010; J7030; J7060; J7120; J7512; P9045

== ENCOUNTER 2020-03-07 08:42 | Emergency (ER) | payer OTHER ==
[2020-03-07 09:54] LABS: Absolute Lymphocytes (CBC) 0.6 K/uL (0.7-4.9); Basophils % 0.3 % (0-1.3); Hematocrit 37.9 % (39.6-49.0); Lymphocytes % 4.7 % (15.3-44.8); MPV 7.7 fL (7.6-11.3); RBC Red Blood Cell Count 4.15 M/uL (4.33-5.43)
--- OUTSIDE RECORDS SUMMARY | 2020-03-07 10:30 | XMS REPORT | Summary of Care ---
:1950 Author Organization [facility] Address [address] [place] [address] Care Team Providers Name Role Phone Asmita Caldwell Primary Care Provider Reason for Visit Reason Comments Cough x 3 days Body Aches x 3 days Fever 100.3F Encounter Details Date Type Department Care Team Description 02/17/2020 Urgent Care [facility] Family Jocy Mayen, [employer] [address] [place] [address] Viral illness (Primary Dx); Medicine - [facility] Cough [address] [place] [address] Allergies No Known Allergiesdocumented as of this encounter (statuses as of 02/17/2020) Medications Medication Sig Dispensed Refills Start Date End Date Status losartan potassium Take by mouth. 0 Active (LOSARTAN ORAL) levothyroxine sodium Take by mouth. 0 Active (LEVOTHYROXINE ORAL) documented as of this encounter (statuses as of 02/17/2020) Active Problems No known active problemsdocumented as of this encounter (statuses as of 02/17/2020) Social History Tobacco Use Types Packs/Day Years Used Date Light Tobacco Smoker Cigars Smokeless Tobacco: Current User Chew Sex Assigned at Date Recorded Not on file Job Start Date Occupation Industry Not on file Not on file Not on file Travel History Travel Start Travel End No recent travel history available. documented as of this encounter Last Filed Vital Signs Vital Sign Reading Time Taken Comments Blood Pressure 147/85 02/17/2020 3:04 PM CDT Pulse 59 02/17/2020 3:04 PM CDT Temperature 36.9 C (98.5 F) 02/17/2020 2:58 PM CDT Respiratory Rate 18 02/17/2020 2:58 PM CDT Oxygen Saturation 98% 02/17/2020 2:58 PM CDT Inhaled Oxygen Concentration - - Weight 108.9 kg (240 lb) 02/17/2020 2:58 PM CDT Height 191.8 cm (6' 3.5") 02/17/2020 2:58 PM CDT Body Mass Index 29.6 02/17/2020 2:58 PM CDT documented in this encounter Patient Instructions Patient InstructionsJocy MayenSHARMIN - 02/17/2020 2:40 PM CDT1. Viral illness 2. Cough - COVID-19 (PCR MOLECULAR TESTING); Future - COVID-19 (PCR MOLECULAR TESTING) - Quarantine until your COVID results are back Criteria met - Covid testing - pending. This test can take 2-3 days to be resulted. While the test is pending...Please socially isolate your self - do not go out to stores or out in public. We will contact you once we have the results. If you are negative - continue with symptomatic treatment. (see below) Patients who have positive results will be contacted by the health department to enforce quarantine measures and for additional community contact tracing. The Infection Control Department will also undertake evaluation of exposures in our healthcare facility. If symptoms worsen - please call your Primary Care Doctor - do not go into the clinic. Call first. Educated on the following at home care: -Increase water intake, min 64 oz daily -Advised to increase fluid intake, ensure to stay hydrated, and get plenty of rest -Take over the counter remidies; vitamin C for immune boosting - Steam/humidifier inhalation -Take Tylenol and Ibuprofen as needed - Pt advised to clean all high risk surfaces -Wash hands often; use alcohol based hand spool carrier that contains at least 60% alcohol -Cover mouth when coughing, wear mask -Stay in your own bedroom and use a separate bathroom -Keep at least 6 feet from you and others -Avoid sharing personal household items, dishes, glasses, cups, towels -Clean high traffic/touch areas daily. These include but not limited to: doorknobs, refrigerator/cabinet handles, phones, keyboards, tablets, light switches. -Monitor your symptoms. Take your temperature 2 times daily. -Monitor your symptoms. Go to the ED if worsening symptoms: chest pain, difficulty breathing, coughing up blood, weakness, dizziness, passing out. Follow-up with PCP as needed, if no improvement EDUCATION: Handouts given: "What to do if you are sick with COVID-19" [facility] information guide reviewed with the patient and handout given to patient FOLLOW UP: Pt advised to call 911 or go to the nearest Emergency Department sooner for any worsening, persistent, or concerning symptoms ER precautions given documented in this encounter Progress Notes Jocy Mayen FNP - 02/17/2020 2:40 PM CDT Cc: Chief Complaint Patient presents with Cough x 3 days Body Aches x 3 days Fever 100.3F Mehul Franco is a 69 year old male presents with concern for cough, body aches and fever. He started about 2 days ago with cough and body aches. Then fever started yesterday with fever, TMAX 100.3. Today he started with Aleve and sudafed. Some runny nose and congestion. He wears cpap at night. He denies any sick contacts. Eating/drinking okay. Denies any sob. URI Presenting symptoms: congestion, cough, fatigue, fever and rhinorrhea Presenting symptoms: no ear pain, no facial pain and no sore throat Congestion: Location: Nasal Interferes with sleep: no Interferes with eating/drinking: no Cough: Cough characteristics: Dry Severity: Mild Onset quality: Gradual Duration: 3 days Timing: Intermittent Progression: Unchanged Chronicity: New Fatigue: Severity: Mild Duration: 3 days Timing: Intermittent Progression: Unchanged Fever: Duration: 2 days Timing: Intermittent Max temp prior to arrival: 100.3 Temp source: Oral Progression: Unchanged Severity: Mild Onset quality: Gradual Duration: 3 days Timing: Intermittent Progression: Unchanged Chronicity: New Relieved by: OTC medications Worsened by: Nothing Associated symptoms: myalgias and sneezing Associated symptoms: no arthralgias, no headaches, no neck pain, no sinus pain, no swollen glands and no wheezing Risk factors: no immunosuppression, no recent illness, no recent travel and no sick contacts Allergies Mehul has No Known Allergies. Medications Outpatient Medications Prior to Visit Medication Sig Dispense Refill levothyroxine sodium (LEVOTHYROXINE ORAL) Take by mouth. losartan potassium (LOSARTAN ORAL) Take by mouth. No facility-administered medications prior to visit. Histories History reviewed. No pertinent past medical history. History reviewed. No pertinent surgical history. Social History Socioeconomic History Marital status: Spouse name: Not on file Number of children: Not on file Years of education: Not on file Highest education level: Not on file Occupational History Not on file Social Needs Financial resource strain: Not on file Food insecurity: Worry: Not on file Inability: Not on file Transportation needs: Medical: Not on file Non-medical: Not on file Tobacco Use Smoking status: Never Smoker Smokeless tobacco: Current User Types: Chew Substance and Sexual Activity Alcohol use: Not on file Drug use: Not on file Sexual activity: Not on file Lifestyle Physical activity: Days per week: Not on file Minutes per session: Not on file Stress: Not on file Relationships Social connections: Talks on phone: Not on file Gets together: Not on file Attends taoism service: Not on file Active member of club or organization: Not on file Attends meetings of clubs or organizations: Not on file Relationship status: Not on file Intimate partner violence: Fear of current or ex partner: Not on file Emotionally abused: Not on file Physically abused: Not on file Forced sexual activity: Not on file Other Topics Concern Not on file Social History Narrative Not on file History reviewed. No pertinent family history. Review of Systems Constitutional: Positive for chills, fatigue and fever. HENT: Positive for congestion, rhinorrhea and sneezing. Negative for ear pain, sinus pain and sore throat. Respiratory: Positive for cough. Negative for shortness of breath, wheezing and stridor. Gastrointestinal: Negative for diarrhea, nausea and vomiting. Musculoskeletal: Positive for myalgias. Negative for arthralgias and neck pain. Skin: Negative for rash. Neurological: Negative for dizziness, weakness and headaches. All other systems reviewed and are negative. Vital Signs BP (!) 147/85 (BP Location: Left arm, Patient Position: Sitting, BP CUFF SIZE: Adult Medium) | Pulse 59 | Temp 36.9 C (98.5 F) (Oral) | Resp 18 | Ht 6' 3.5" (1.918 m) | Wt 240 lb (108.9 kg) |SpO2 98% | BMI 29.60 kg/m Physical Exam Constitutional: He is oriented to person, place, and time. He appears well- developed and well-nourished. HENT: Head: Normocephalic and atraumatic. Right Ear: Tympanic membrane, external ear and ear canal normal. Left Ear: Tympanic membrane, external ear and ear canal normal. Nose: Mucosal edema and rhinorrhea present. No sinus tenderness. Mouth/Throat: Uvula is midline, oropharynx is clear and moist and mucous membranes are normal. Tonsils are 1+ on the right. Tonsils are 1+ on the left. Eyes: Conjunctivae are normal. Neck: Normal range of motion. Neck supple. Cardiovascular: Normal rate, regular rhythm and normal heart sounds. Exam reveals no gallop and no friction rub. No murmur heard. Pulmonary/Chest: Effort normal and breath sounds normal. No respiratory distress. He has no wheezes.He has no rales. Musculoskeletal: Normal range of motion. Neurological: He is alert and oriented to person, place, and time. Skin: Skin is warm and dry. Psychiatric: He has a normal mood and affect. His behavior is normal. Nursing note and vitals reviewed. Assessment/Plan Mehul Franco is a 69 year old male presents with concern for cough, body aches and fever. 1. Viral illness 2. Cough - COVID-19 (PCR MOLECULAR TESTING); Future - COVID-19 (PCR MOLECULAR TESTING) - Quarantine until your COVID results are back Criteria met - Covid testing - pending. This test can take 2-3 days to be resulted. While the test is pending...Please socially isolate your self - do not go out to stores or out in public. We will contact you once we have the results. If you are negative - continue with symptomatic treatment. (see below) Patients who have positive results will be contacted by the health department to enforce quarantine measures and for additional community contact tracing. The Infection Control Department will also undertake evaluation of exposures in our healthcare facility. If symptoms worsen - please call your Primary Care Doctor - do not go into the clinic. Call first. Educated on the following at home care: -Increase water intake, min 64 oz daily -Advised to increase fluid intake, ensure to stay hydrated, and get plenty of rest -Take over the counter remidies; vitamin C for immune boosting - Steam/humidifier inhalation -Take Tylenol and Ibuprofen as needed - Pt advised to clean all high risk surfaces -Wash hands often; use alcohol based hand spool carrier that contains at least 60% alcohol -Cover mouth when coughing, wear mask -Stay in your own bedroom and use a separate bathroom -Keep at least 6 feet from you and others -Avoid sharing personal household items, dishes, glasses, cups, towels -Clean high traffic/touch areas daily. These include but not limited to: doorknobs, refrigerator/cabinet handles, phones, keyboards, tablets, light switches. -Monitor your symptoms. Take your temperature 2 times daily. -Monitor your symptoms. Go to the ED if worsening symptoms: chest pain, difficulty breathing, coughing up blood, weakness, dizziness, passing out. Follow-up with PCP as needed, if no improvement EDUCATION: Handouts given: "What to do if you are sick with COVID-19" [facility] information guide reviewed with the patient and handout given to patient FOLLOW UP: Pt advised to call 911 or go to the nearest Emergency Department sooner for any worsening, persistent, or concerning symptoms ER precautions given Plan of care, desired health behaviors, goals, and medication discussed with patient. Education resources provided and reviewed with AVS. Patient/guardian/family verbalized understanding & agrees to plan of care. If applicable, the [place] [employer] database was accessed to review any controlled substance prescription claims data. The [employer] prescription claims data in [facility] was reviewed to assess patient compliance with the medication treatment plan. Urgent Care precautions and follow up : 1. Return to clinic if your symptoms should worsen or fail to improve within 72 hours. 2. The care provided in the urgent care was for acute problems only. 3. You should follow up with your primary care provider within 72 hours. 4. Make sure you are staying adequately hydrated. MAY FOLLOW-UP WITH A PROVIDER OF YOUR CHOICE, SUCH : 1. A PHYSICIAN OF YOUR CHOICE OR, IF YOU WISH TO FOLLOW-UP WITHIN THE [facility], MAY TRY THESE OPTIONS (CLINIC APPOINTMENTS AVAILABLE ON [id number] BASIS): 1. SCHEDULE AN APPOINTMENT ONLINE AT [email or web address] 2. OR CALL THE [facility] ACCESS CENTER AT OR 3. OR CALL YOUR [facility] PHYSICIAN'S OFFICE DIRECTLY IF YOU ARE ALREADY AN ESTABLISHED [facility] PATIENT. After hours care nurse access center available by calling [phone] 24 hours 7 days per week. Jocy FINNEY [facility] documented in this encounter Plan of Treatment Name Type Priority Associated Diagnoses Order S yisel COVID-19 (PCR MOLECULAR LAB Routine Cough Expe cted: 02/17/2020, TESTING) Expires: 2020 Health Maintenance Due Date Last Done Comments HEPATITIS C (HCV) SCREEN 1950 DTaP,Tdap,and Td Vaccines (1 - Tdap) 1960 Depression Screening 1961 COLONOSCOPY 1999 Zoster Recombinant Vaccine (SHINGRIX) (1 of 2) 1999 PNEUMOCOCCAL VACCINES 65+ (1 of 2 - PCV13) 2014 INFLUENZA VACCINE (Season Ended) 2020 documented as of this encounter Results Not on filedocumented in this encounter Visit Diagnoses Diagnosis Viral illness - Primary Unspecified viral infection, in conditio ns classified elsewhere and of unspecified site Cough documented in this encounter Insurance Payer Benefit Plan Subscriber ID Effective Dates Phone Address Type / Group [facility] [id number] 2019-Prese HMO/ PPO/P ADMINISTRATION nt OS documented as of this encounter
--- OUTSIDE RECORDS SUMMARY | 2020-03-07 10:30 | XMS REPORT | Continuity of Care Document ---
:1950 Author Organization [facility] t Address [address] [place] [address] Dr. Dhaliwal [address] [place] [address] Care Team Providers Name Role Phone [facility], [facility] Attending Clinician Unavailable Problems This patient has no known problems. Allergies, Adverse Reactions, Alerts This patient has no known allergies or adverse reactions. Medications This patient has no known medications. Procedures This patient has no known procedures. Encounters Start End Encounter Admission Attending Care Care Encounter Source Date/Time Date/Time Type Type Clinicians Facility Department ID 2020-02-17 2020-02-17 Urgent [facility], Acute [facility] [id number] 14:52:50 15:19:29 [facility] [id number] [place] [id number] [place] [phone] [address] Results This patient has no known results.
[2020-03-07 10:31] LABS: Urine Blood NEGATIVE (NEG); Urine Glucose NEGATIVE (NEG); Urine Protein 1+ (NEG); Urine pH 6.5 (5.0-7.0)
[2020-03-07 10:48] LABS: Albumin 2.7 g/dL (3.4-5.0); Bilirubin Direct 0.3 mg/dL (0-0.2); Protein, Total 7.2 g/dL (6.4-8.2)
--- NOTE | 2020-03-07 10:54 | RAD REPORT ---
EXAM DESCRIPTION: CTAbdomen Pelvis W Contrast - 03/07/2020 10:39 am CLINICAL HISTORY: Abdominal pain. post operative pain COMPARISON: Abdomen Pelvis Wo Contrast dated 02/26/2020; Chest Single View dated 03/01/2020 TECHNIQUE: Biphasic CT imaging of the abdomen and pelvis was performed with 100 ml non-ionic IV cont rast. All CT scans are performed using dose optimization technique as appropriate and may include automated exposure control or mA/KV adjustment according to patient size. FINDINGS: Mild ground-glass opacities and atelectasis are seen in both lung bases. No aggressive liver lesion or biliary dilatation. The spleen, pancreas, adrenal glands and kidneys sh ow no acute process. Tiny calculus is suspected inferior left kidney. Bilateral benign appearing karl l cysts. A skin thickening and subcutaneous inflammatory changes are present along staple line in the midline abdomen. Small 4 x 3 cm fluid collection is seen deep to the staple line (image 59/109) which could b e a small hematoma or incisional abscess. Appendectomy. Small bilateral fat containing inguinal mendez ias. No evidence of significant lymphadenopathy. No suspicious bony findings. IMPRESSION: Inflammatory changes are seen along midline staple line with a 4 x 3 cm collection deep to the staple line which may be a small hematoma or incisional abscess. Appendectomy. Ground-glass opacities in the lung bases could indicate COVID pneumonia.
[2020-03-07 12:33] LABS: Blood Morphology Comment NOT SEEN (NOT SEEN); Platelet Estimate INCR; Urine White Blood Cell Casts OK
[2020-03-07 12:49] LABS: Protime INR 1.54
--- NOTE | 2020-03-07 13:05 | ER ---
Nurse's Notes [facility] Name: Mehul Franco Age: 69 yrs Sex: Male : 1950 Arrival Date: 03/07/2020 Time: 08:46 Bed 15 Private MD: Diagnosis: Seroma;Hematoma Presentation: 03/07 09:13 Chief complaint: Patient states: redness and swelling to abd incision. Pt reports he ss had an open appendectomy procedure on the 28 of February. Pt tested positive for COVID 19 on 02/18. Coronavirus screen: Surgical mask placed on patient. Patient moved to private room, placed in contact and droplet isolation with eye protection until further assessment. Patient reports a cough. Patient reports shortness of breath or difficulty breathing. Patient denies measured and/or subjective temperature greater than 100.4F prior to today's visit. Patient denies travel on a cruise ship or to a country the [facility] currently lists as an affected area. Ebola Screen: Patient denies exposure to infectious person. Patient denies travel to an Ebola-affected area in the 21 days before illness onset. Initial Sepsis Screen: Does the patient meet any 2 criteria? No. Patient's initial sepsis screen is negative. Does the patient have a suspected source of infection? No. Patient's initial sepsis screen is negative. Risk Assessment: Do you want to hurt yourself or someone else? Patient reports no desire to harm self or others. Onset of symptoms was March 05, 2020. 09:13 Method Of Arrival: Ambulatory ss 09:13 Acuity: DAFNE 3 ss Historical: - Allergies: 09:16 No Known Allergies; ss - PMHx: 09:16 High Cholesterol; Thyroid problem; ss - PSHx: 09:16 Hernia repair; Appendectomy; ss - Immunization history:: Adult Immunizations up to date. - Social history:: Smoking status: Patient denies any tobacco usage or history of. Screenin:00 Abuse screen: Denies threats or abuse. Denies injuries from another. Nutritional ph screening: No deficits noted. Tuberculosis screening: No symptoms or risk factors identified. Fall Risk None identified. Assessment: 09:45 General: Appears in no apparent distress. uncomfortable, well groomed, Behavior is ph calm, cooperative, appropriate for age. Pain: Complains of pain in abdomen. Neuro: Level of Consciousness is awake, alert, obeys commands, Oriented to person, place, time, situation. Cardiovascular: Capillary refill < 3 seconds in bilateral Patient's skin is warm and dry. Respiratory: Airway is patent Respiratory effort is even, unlabored, Respiratory pattern is regular, symmetrical. Respiratory: Reports cough that is non-productive, Denies shortness of breath. GI: Abdomen is non-distended, post-surgical site noted to abdomen, mello in place, slight redness and swelling noted. Derm: Skin is pink, warm \T\ dry. Musculoskeletal: Circulation, motion, and sensation intact. Range of motion: intact in all extremities. 11:00 Reassessment: Patient appears in no apparent distress at this time. Patient and/or ph family updated on plan of care and expected duration. Pain level reassessed. Patient is alert, oriented x 3, equal unlabored respirations, skin warm/dry/pink. 12:00 Reassessment: Patient appears in no apparent distress at this time. Patient and/or ph family updated on plan of care and expected duration. Pain level reassessed. Patient is alert, oriented x 3, equal unlabored respirations, skin warm/dry/pink. 13:00 Reassessment: Patient appears in no apparent distress at this time. Patient and/or ph family updated on plan of care and expected duration. Pain level reassessed. Patient is alert, oriented x 3, equal unlabored respirations, skin warm/dry/pink. Abdominal wound dressed w/ wet to dry and ABD pad. Vital Signs: 09:13 BP 127 / 78; Pulse 68; Resp 16; Temp 97.9(TE); Pulse Ox 95% on R/A; Weight 105.23 kg; Height 6 ft. 3 in. (190.50 cm); Pain 5/10; 11:00 BP 142 / 86; Pulse 69; Resp 18; Temp 98.0; Pulse Ox 98% on R/A; ph 12:12 BP 122 / 78; Pulse 60; Resp 20; Pulse Ox 96% on R/A; ph 13:00 BP 137 / 80; Pulse 67; Resp 18; Pulse Ox 98% on R/A; ph 09:13 Body Mass Index 29.00 (105.23 kg, 190.50 cm) ED Course: 08:46 Patient arrived in ED. mr 08:57 Norris Guillaume MD is Attending Physician. 7 09:16 Triage completed. ss 09:16 Arm band placed on right wrist. 09:[address] Venegas called and connected with Dr. Guillaume for patient consultation. eb 09:31 Lina Dalal, RN is Primary Nurse. ph 09:45 Inserted saline lock: 22 gauge in right antecubital area, using aseptic technique. ph 10:00 Patient has correct armband on for positive identification. Bed in low position. Call ph light in reach. Side rails up X 1. Pulse ox on. NIBP on. Door closed. Noise minimized. Warm blanket given. 10:39 CT Abd/Pelvis - IV Contrast Only In Process Unspecified. EDMS 13:00 Dressings: ABD pad X 1; abdomen 4X4s X 2; abdomen. ph 13:03 Ej Venegas MD is Referral Physician. 7 13:25 No provider procedures requiring assistance completed. IV discontinued, intact, ph bleeding controlled, No redness/swelling at site. Pressure dressing applied. Administered Medications: No medications were administered Outcome: 13:04 Discharge ordered by . [email or web address] 13:29 Patient left the ED. ph 13:29 Discharged to home ambulatory. ph 13:29 Condition: good 13:29 Discharge instructions given to patient, Instructed on discharge instructions, follow up and referral plans. medication usage, wound care, Demonstrated understanding of instructions, follow-up care, medications, wound care, Prescriptions given X 2. Signatures: Dispatcher [employer] EDOH Ebony Alston KareemLeticia blunt RN RN Lina Dalal, ROGERIO RN [facility] Norris Guillaume MD MD [facility]
--- NOTE | 2020-03-07 13:05 | EDPHYS ---
Physician Documentation [facility] Name: Mehul Franco Age: 69 yrs Sex: Male : 1950 Arrival Date: 03/07/2020 Time: 08:46 Bed 15 Private MD: ED Physician Norris Guillaume HPI: 03/07 10:10 This 69 yrs old Male presents to ER via Ambulatory with complaints of Wound mh7 Recheck. 10:10 Patient presents to ED for recheck of: surgical wound. The affected area is on the mh7 abdomen. Previous treatment: The patient was initially treated 10 day(s) ago, the care was rendered at [facility], Treatment type: The patient's original treatment included mello, exploratory laparotomy and appendectomy. Progress: The patient reports increased redness, swelling. The patient has been recently been admitted at [facility], was discharged earlier this week. Historical: - Allergies: 09:16 No Known Allergies; ss - PMHx: 09:16 High Cholesterol; Thyroid problem; ss - PSHx: 09:16 Hernia repair; Appendectomy; ss - Immunization history:: Adult Immunizations up to date. - Social history:: Smoking status: Patient denies any tobacco usage or history of. ROS: 10:10 Constitutional: Negative for fever, chills, and weight loss, Eyes: Negative for injury, mh7 pain, redness, and discharge, ENT: Negative for injury, pain, and discharge, Neck: Negative for injury, pain, and swelling, Cardiovascular: Negative for chest pain, palpitations, and edema, Respiratory: Negative for shortness of breath, cough, wheezing, and pleuritic chest pain, Abdomen/GI: Negative for abdominal pain, nausea, vomiting, diarrhea, and constipation, Back: Negative for injury and pain, : Negative for injury, bleeding, discharge, and swelling, MS/Extremity: Negative for injury and deformity. 10:10 Neuro: Negative for headache, weakness, numbness, tingling, and seizure, Psych: Negative for depression, anxiety, suicide ideation, homicidal ideation, and hallucinations, Allergy/Immunology: Negative for hives, rash, and allergies, Endocrine: Negative for neck swelling, polydipsia, polyuria, polyphagia, and marked weight changes, Hematologic/Lymphatic: Negative for swollen nodes, abnormal bleeding, and unusual bruising. 10:10 Skin: Positive for erythema, swelling, of the abdomen, redness. Exam: 10:10 Constitutional: This is a well developed, well nourished patient who is awake, alert, mh7 and in no acute distress. Head/Face: Normocephalic, atraumatic. Eyes: Pupils equal round and reactive to light, extra-ocular motions intact. Lids and lashes normal. Conjunctiva and sclera are non-icteric and not injected. Cornea within normal limits. Periorbital areas with no swelling, redness, or edema. Neck: Trachea midline, no thyromegaly or masses palpated, and no cervical lymphadenopathy. Supple, full range of motion without nuchal rigidity, or vertebral point tenderness. No Meningismus. Chest/axilla: Normal chest wall appearance and motion. Nontender with no deformity. No lesions are appreciated. Cardiovascular: Regular rate and rhythm with a normal S1 and S2. No gallops, murmurs, or rubs. Normal PMI, no JVD. No pulse deficits. Respiratory: Lungs have equal breath sounds bilaterally, clear to auscultation and percussion. No rales, rhonchi or wheezes noted. No increased work of breathing, no retractions or nasal flaring. 10:10 Back: No spinal tenderness. No costovertebral tenderness. Full range of motion. 10:10 MS/ Extremity: Pulses equal, no cyanosis. Neurovascular intact. Full, normal range of motion. Neuro: Awake and alert, GCS 15, oriented to person, place, time, and situation. Cranial nerves II-XII grossly intact. Motor strength 5/5 in all extremities. Sensory grossly intact. Cerebellar exam normal. Normal gait. Psych: Awake, alert, with orientation to person, place and time. Behavior, mood, and affect are within normal limits. 10:10 Abdomen/GI: Inspection: scar(s), are noted in the abdomen, midline with mello in place, left lower abdomen, Bowel sounds: normal, in all quadrants, Palpation: abdomen is soft and non-tender, in all quadrants, Rectal exam: the exam is deferred, because of patient request, Indicators: McBurney's point is not tender, Herrera's sign is negative, Rovsing's sign is negative, Obturator sign is negative, Psoas sign is negative, Liver: no appreciated palpable abnormalities, Hernia: not appreciated. 10:10 Skin: Wound recheck: mild erythema at surgical site without discharge. Vital Signs: 09:13 BP 127 / 78; Pulse 68; Resp 16; Temp 97.9(TE); Pulse Ox 95% on R/A; Weight 105.23 kg; ss Height 6 ft. 3 in. (190.50 cm); Pain 5/10; 11:00 BP 142 / 86; Pulse 69; Resp 18; Temp 98.0; Pulse Ox 98% on R/A; ph 12:12 BP 122 / 78; Pulse 60; Resp 20; Pulse Ox 96% on R/A; ph 13:00 BP 137 / 80; Pulse 67; Resp 18; Pulse Ox 98% on R/A; ph 09:13 Body Mass Index 29.00 (105.23 kg, 190.50 cm) ss MDM: 09:25 Patient medically screened. 7 13:00 Differential diagnosis: cellulitis, post operative complication, wound infection, 7 seroma, hematoma, abscess. Data reviewed: vital signs, nurses notes, old medical records, lab test result(s), CBC, electrolytes, urinalysis, radiologic studies, CT scan. Data interpreted: manager image: rate is 60 beats/min, rhythm is normal sinus rhythm, regular, Interpretation: normal rate, normal rhythm, Pulse oximetry: on room air is 96 %. Interpretation: normal. Counseling: I had a detailed discussion with the patient and/or guardian regarding: the historical points, exam findings, and any diagnostic results supporting the discharge/admit diagnosis, lab results, radiology results, the need for outpatient follow up, for definitive care, a general surgeon, to return to the emergency department if symptoms worsen or persist or if there are any questions or concerns that arise at home. Response to treatment: the patient's symptoms have markedly improved after treatment. Physician consultation: Ej Venegas MD regarding patient's condition, and will see patient in office, in 2-3 days. 03/07 09:28 Order name: Basic Metabolic Panel; Complete Time: 11:09 [facility] 03/07 09:28 Order name: CBC with Diff; Complete Time: 12:59 7 03/07 09:28 Order name: Hepatic Function; Complete Time: 11: [facility] 03/07 09:28 Order name: Lipase; Complete Time: 11:09 [facility] 03/07 09:53 Order name: Urine Dipstick--Ancillary (enter results); Complete Time: 11: 03/07 10:03 Order name: PT-INR; Complete Time: 12:59 [facility] 03/07 09:28 Order name: IV Saline Lock; Complete Time: 10:27 [facility] 03/07 09:28 Order name: Labs collected and sent; Complete Time: 10: [facility] 03/07 09:28 Order name: Urine Dipstick-Ancillary (obtain specimen); Complete Time: 10: [facility] 03/07 09:28 Order name: CT Abd/Pelvis - IV Contrast Only; Complete Time: 11: [facility] 03/07 10:34 Order name: Labs - recollect needed: blue top; Complete Time: 11:23 03/07 12:33 Order name: CBC Smear Scan; Complete Time: 12:59 EDMS Administered Medications: No medications were administered Disposition: 03/07/20 13:04 Discharged to Home. Impression: Seroma, Hematoma. - Condition is Stable. - Discharge Instructions: Hematoma, [id number], Seroma. - Prescriptions for Dakin's Solution - Apply to affected area 1 application by TOPICAL route 2 times per day for 10 days Apply for damp to dry dressings; 20 unit. Bactrim DS 800- 160 mg Oral Tablet - take 1 tablet by ORAL route every 12 hours for 10 days; 20 tablet. - Medication Reconciliation Form, Thank You Letter, Antibiotic Education, Prescription Opioid Use form. - Follow up: Private Physician; When: 1 - 2 days; Reason: Worsening of condition, Recheck today's complaints, Re-evaluation by your physician. Follow up: Ej Venegas MD; When: Tomorrow; Reason: Worsening of condition, Recheck today's complaints. - Problem is new. - Symptoms have improved. Signatures: Dispatcher [employer] EDMS Leticia Alvarez RN RN ss Hall, Patricia, RN RN ph Botello, Elizabeth eb Holmes, Maurice, MD MD mh7 Corrections: (The following items were deleted from the chart) 13:29 13:04 03/07/2020 13:04 Discharged to Home. Impression: Seroma; Hematoma. Condition is ph Stable. Forms are Medication Reconciliation Form, Thank You Letter, Antibiotic Education, Prescription Opioid Use. Follow up: Private Physician; When: 1 - 2 days; Reason: Worsening of condition, Recheck today's complaints, Re-evaluation by your physician. Follow up: Ej Venegas; When: Tomorrow; Reason: Worsening of condition, Recheck today's complaints. Problem is new. Symptoms have improved. mh7
[2020-03-07 13:34] VITALS: TEMP 97.9
[2020-03-07 13:35] VITALS: BP 122/78; O2SAT 96
== END 2020-03-07 13:29 | disposition home or self-care (01) ==
LOC: ER 08:42
DX: K91.872 Postprocedural seroma of a digestive system organ or structure following a digestive system procedure (principal)
CPT/HCPCS: 85025; 80048; 36415; 85610; 80076; 81003; 83690; 74177; 99284; Q9967